=== PATIENT | male | born 1945 | race Caucasian/White ===

== ENCOUNTER 2018-11-11 00:46 | Inpatient (IN) | payer MEDICARE ==
[~2018-11-11] VITALS: Ht 172.7 cm; Wt 81.2 kg
[2018-11-11] VITALS (7 sets, daily range): BP systolic 117–203; BP diastolic 43–168
[~2018-11-11 00:46] MED LIST: CARDURA4 MG PO; COREG25 MG PO; ENOXAPARIN30 MG/0.1 SUBQ; LIPITOR 20 MG T20 M1 PO; LIPITOR40 MG PO; PRINIVIL10 MG PO; PRINIVIL20 MG PO
[2018-11-11 00:59] LABS: ABSOLUTE BASOPHILS 0.1 thou/uL (0.0-0.2); ABSOLUTE EOSINOPHILS 0.3 thou/uL (0.0-0.7); ABSOLUTE LYMPHOCYTES 3.6 thou/uL (0.8-5.3); ABSOLUTE MONOCYTES 0.9 thou/uL (0.0-1.2); BASOPHILS 0.7 %; EOSINOPHILS 3.2 %; HEMATOCRIT 50.1 % (42.0-52.0); HEMOGLOBIN 16.8 gm/dL (14.0-18.0); LYMPHOCYTES 40.6 %; MCH 30.5 pg (26.0-34.0); MCHC 33.5 g/dL (28.0-37.0); MCV 91.1 fL (80.0-100.0); MONOCYTES 10.4 %; MPV 7.5 fl. (7.2-11.1); NUCLEATED RBCS 0 /100WBC; PLATELET COUNT* 276 thou/uL (150-400); POLYS 45.1 %; RBC 5.49 mil/uL (4.50-6.00); WBC 8.9 thou/uL (4.0-11.0)
[2018-11-11 01:06] LABS: BUN 21 mg/dL (7-18); CALCIUM 9.1 mg/dL (8.5-10.1); CHLORIDE 102 mmol/L (98-107); CO2 28 mmol/L (21-32); CREATININE 1.1 mg/dL (0.6-1.3); GLUCOSE 134 mg/dL (70-99); POTASSIUM 4.1 mmol/L (3.5-5.1)
[2018-11-11 01:10] LABS: PROTIME 10.3 Seconds (9.20-11.50)
[2018-11-11 01:17] LABS: ALBUMIN 3.8 g/dL (3.4-5.0); ALKALINE PHOSPHATASE 80 U/L (46-116); NT-PRO BRAIN NAT PEPTIDE 779 pg/mL (<300); SGOT 29 U/L (15-37); SGPT 38 U/L (30-65); TOTAL BILIRUBIN 0.3 mg/dL (<0.1-1.0); TOTAL PROTEIN 8.3 g/dL (6.4-8.2); TROPONIN-I LEVEL <0.06 ng/mL (<0.06)
[2018-11-11 01:31] LABS: ANION GAP 9 mmol/L (7-16); SODIUM 139 mmol/L (136-145)
[2018-11-11 02:58] LABS: BE 1.6 mmol/L (-2 to +3); PCO2 40.9 mmHg (35.0-45.0); pH 7.424 (7.340-7.450)
[2018-11-11 02:59] LABS: PO2 144.8 mmHg (75.0-100.0)
--- NOTE | 2018-11-11 06:15 | NUR ---
PT ARRIVED TO THE UNIT AROUND 0445 FROM ER AND WALKED TO HIS BED WITH NO ISSUES. ABLE TO MAKE NEEDS KNOWN. ASSESSMENT COMPLETED CHARTED. PAPERWORK SIGNED AND EXPLAINED. BIPAP ON, RESTING IN BED WATCHING TV. NO C/O PAIN OR DISCOMFORT. IV FLUIDS RUNNING PER P.O. MEDS RECONCILED. WILL CONTINUE TO MONITOR.
[2018-11-11 07:56] LABS: CHOLESTEROL 181 mg/dL (<200); HDL CHOLESTEROL 45 mg/dL (>40); LDL CHOLESTEROL 125 mg/dL (<100); SERUM ASSESSMENT Clear; TRIGLYCERIDE 59 mg/dL (<150); VLDL 12 mg/dL (<40)
--- NOTE | 2018-11-11 10:00 | NUR ---
VSS, ASSUMED CARE IN THE AM, ASSESSMENT PERFORMED AND CHARTED, FALL PRECAUTIONS IN PLACE AND CALL LIGHT IN REACH, PT IS A&O4 AND WAS ON BIPAP BUT WAS D/C TO NC WITH 3L NC, PT O2 SAT IS 94%, PT IS UP AD GINNY, PT IS TRACING SR ON THE MONITOR, PT GOAL IS TO IMPROVE BREATHING, WALK THE UNIT AND SIT UP IN CHAIR, WILL FOLLOW WITH PLAN OF CARE.
--- NOTE | 2018-11-11 10:33 | EKG ---
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 : 1945 Requested By: Cindi Rich Order Number: [id number] MD: Cristian Carmona Measurements Intervals [place] Rate: 73 P: 70 MN: 167 QRS: 49 QRSD: 127 T: 98 QT: 409 QTc: 451 Interpretive Statements Sinus rhythm Probable left atrial enlargement Nonspecific intraventricular conduction delay Anterior infarct, old Borderline repolarization abnormality Baseline wander in lead(s) V3 Compared to ECG 12/27/2015 18:45:44 no change Electronically Signed On 11-11-2018 10:32:57 CDT by Cristian Carmona [email or web address] <ELECTRONICALLY SIGNED> By: Cristian Carmona MD, [facility] 11/11/18 1032 1 1 Cristian Carmona MD, [facility] /EPI
--- NOTE | 2018-11-11 14:25 | NUR ---
MET WITH PT AND FRIEND YE BREEZY TO DISCUSS HOME SITUATION/DC PLANNING. PT LIVES A ROOMMATE. HE IS NORMALLY ACTIVE AND INDEPENDENT. USES NO EQUIPMENT AT HOME AND HASN'T HH. FOLLOWS WITH DR SHIN. PT DOESN'T HAVE A DPOA BUT TOOK INFO AND IS CONSIDERING HAVING YE BE HIS DPOA. PT DENIES DC NEEDS AT THIS TIME. WILL FOLLOW
[2018-11-11 23:06] LABS: GLYCOHEMOGLOBIN (HGB A1C) 5.7 % (4.8-5.6)
[2018-11-12] VITALS: BP 137/51
[2018-11-12 04:00] VITALS: BP 140/59
[2018-11-12 05:28] LABS: HEMATOCRIT 41.3 % (42.0-52.0); MCH 30.4 pg (26.0-34.0); MCHC 33.3 g/dL (28.0-37.0); MCV 91.3 fL (80.0-100.0); MPV 8.1 fl. (7.2-11.1); RBC 4.53 mil/uL (4.50-6.00); RDW-CV 13.7 % (10.5-14.5); WBC 9.8 thou/uL (4.0-11.0)
--- NOTE | 2018-11-12 05:41 | NUR ---
ASSUMED PT CARE AT 1930. ASSESSMENT COMPLETED CHARTED. ABLE TO MAKE NEEDS KNOWN. UP AD GINNY. O2 ON 3L, NO C/O PAIN OR SOA. STATES HE FEELS MUCH BETTER THAN HE DID YESTERDAY. VSS. CALL LIGHT WITHIN REACH. WILL CONTINUE TO MONITOR.
[2018-11-12 05:43] LABS: HEMOGLOBIN 13.8 gm/dL (14.0-18.0)
[2018-11-12 06:29] LABS: CREATININE 1.1 mg/dL (0.6-1.3); MAGNESIUM 2.1 mg/dL (1.8-2.4); POTASSIUM 4.8 mmol/L (3.5-5.1); TROPONIN-I LEVEL 0.21 ng/mL (<0.06)
--- NOTE | 2018-11-12 07:58 | CON ---
[facility] [address] [place] [address] CONSULTATION Name: STEPHENIE MENDOZA Room: [address] IN M.R.#: [id number] Admission: 11/11/18 Attend Phys: Lindsey Encinas Discharge: Date of : 49 Report #: [id number] THIS REPORT FOR: //name// CC: Anand Lomeli DATE OF SERVICE: 11/11/2018 REQUESTING PHYSICIAN: Dr. Venecia Polanco. REASON FOR CONSULTATION: Shortness of breath, respiratory failure. DISCUSSION: The patient is a 73-year-old man who is a former smoker, quitting about 7-8 years ago. Denies ever being told that he had any underlying emphysema, asthma and COPD. He is not on any O2 or inhaled bronchodilator therapy at home. He has noted over the last month or so, has had episodes of getting short of breath. They tend to wax and wane. Not associated with any chest pain, palpitations or syncopal episode. He has had some upper airway congestion, which is relatively new for him. He notes in the past, he has not had any issues with allergies, but he has had some eye irritation, nasal congestion this spring. He has had the shortness of breath as noted. He has occasional cough, but he notes it is more from a "tickle" in his throat. Yesterday morning, he had gotten up and gone fishing with a friend. When they got back home, he was feeling very short of breath and asked to be brought to the Emergency Department. He was seen in the ED last night, which actually very early this morning. He was in fairly marked distress. He was placed on BiPAP. Blood gases were done. They were obtained while he was on the BiPAP. He did not have any hypercapnia. He was oxygenating well at that time. He was kept on the BiPAP overnight. He did come off it late this morning or early afternoon. He is feeling generally quite good at this time. He has already been able to get up and take a walk. He is now requesting to take a shower. He has no documented history of lung disease as noted; however, x-rays done here 3 years ago did reveal the pleural plaques. He does have exposure to asbestos in the past, this was quite a few years ago. 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 He notes his father did as a result of asbestosis. He also has a history of coronary artery disease. He had 4 stents placed quite a few years ago at [facility], really cannot be more specific in those details. He now sees Dr. Cristian Carmona. He has not had any chest pain with this as noted. No history of thromboembolic disease. PAST MEDICAL HISTORY: Besides the coronary arteries[place] [address] CONSULTATION Name: STEPHENIE MENDOZA Room: [address] IN M.R.#: [id number] Admission: 11/11/18 Attend Phys: Lindsey Encinas Discharge: Date of : 49 Report #: [id number] stroke, which he had about 3 years ago, also known carotid artery disease, had carotid endarterectomy done 5 or 6 years ago. He has also been evaluated and hospitalized briefly because of concern for heat exhaustion. Has a history of chronic kidney disease and dyslipidemia. 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 Former smoker as noted. He does live with a roommate. No smokers in the house. He quit smoking himself some years ago. He has no pets. Had 4 years in the [employer]. Asbestos exposure years ago when he was younger. FAMILY HISTORY: Positive for asbestosis in his father as noted. Denies any other lung problems in his family that he is aware of. REVIEW OF SYSTEMS: ROS was done. Note positives above. He notes his weight has been stable. Denies any difficulty swallowing. No nausea or vomiting. No diarrhea. He has not noted any blood in his stools. He has not had any hemoptysis. No fevers, chills or sweats. No skin rashes. He has not noted any fluid retention anywhere. Again, no chest pain, no abdominal pain. PHYSICAL EXAMINATION: GENERAL APPEARANCE: A male who looks stated age. He is alert, cooperative, able to speak in full sentences. HEENT: Head is normocephalic and atraumatic. Sclerae nonicteric. Mucous membranes a little dry. Dentition is fair. NECK: Negative for adenopathy. No JVD is noted. HEART: Regular, occasional extrasystole. Grade 1/6 systolic murmur. No S3 is heard. LUNGS: Reveal breath sounds to be only minimally decreased. He does have just a few faint crackles heard in the bases. No wheezing or rhonchi are heard. Excursion is equal. No pleural rubs are noted. EXTREMITIES: He has no clubbing. Radial pulses are present. ABDOMEN: Soft, without appreciable hepatosplenomegaly. No guarding or rebound tenderness. EXTREMITIES: Lower extremities are negative for edema. No calf tenderness. SKIN: Warm and dry. NEUROLOGIC: He is alert and oriented x 3. LABORATORY AND X-RAY FINDINGS: Chest x-ray reveals pleural plaques. They have been seen previously (2016). No CT chest at this facility. Unknown if he has had one elsewhere, he cannot recall. Arterial blood gases done this morning on the BiPAP, he had a pH of 7.42, pCO2 of 41, pO2 of 145, bicarbonate is 26, that was on 40% oxygen on the BiPAP. White blood cell count 8900, hemoglobin 16.8, hematocrit of 50.1, platelets are normal. D-dimer was normal. On his chemistry, BUN is 21, creatinine of 1.1. Transaminases normal. Total protein 8.3, albumin 3.8. Lactic acid was 1.1. Troponins initially normal, did bump up to 0.21. ProBNP 779. Last echocardiogram done here at [place] [place], [place] [address] CONSULTATION Name: STEPHENIE MENDOZA CHARMAINE Room: [address] IN [facility].#: [id number] Admission: 11/11/18 Attend Phys: Lindsey Encinas Discharge: Date of : 49 Report #: [id number] 2015, systolic function was normal with an EF of 50-55%. RV was normal. Left atrium was moderately dilated. Estimated pulmonary artery systolic pressure was 29 mmHg. IMPRESSION: 1. Complaints of marked shortness of breath. He had a fairly sudden onset. This was in the backdrop of having some intermittent episodes of mild shortness of breath and upper airway congestion over the last month, exact etiology not clear. Clinically, is better today. He has been treated with steroids, inhaled bronchodilators and empirically with antibiotics. He certainly could have some underlying chronic obstructive pulmonary disease related to his prior smoking. May have had an exacerbation, possibly allergic component; however, it is not clear what may have triggered the really severe onset. Does have mild elevation in his troponins. There is a possibility this could be related to cardiac ischemia. Thromboembolic disease should be kept in the differential, but I do note his D-dimer was normal, which makes that less likely. 2. Calcified pleural plaques, noted on prior imaging here in 2016, most likely has some pleural plaques related to prior asbestos exposure. 3. History of coronary artery disease, status post stent placement "years ago" reportedly done at [facility]. Did have a normal left ventricular function on his last echocardiogram. 4. History of stroke. 5. History of hypertension. RECOMMENDATIONS: 1. Can leave off BiPAP. Wean O2 as able. 2. We will check CTA of his chest. We cannot only evaluate for thromboembolic disease, can also assess the presence of pleural plaques. 3. May need full PFTs once over this acute event. 4. Follow up the cardiac enzymes. May need repeat echocardiogram. May need stress testing. <ELECTRONICALLY SIGNED> By: Maria Esther Kurtz MD 11/12/18 0758 1422 [id number] Esther Kurtz MD /nt
[2018-11-12 08:41] VITALS: BP 154/58
[2018-11-12 14:05] VITALS: BP 134/47
--- NOTE | 2018-11-12 14:09 | NUR ---
VSS, ASSUMED CARE IN THE AM, ASSESSMENT PERFORMED AND CHARTED, FALL PRECAUTIONS IN PLACE AND CALL LIGHT IN REACH, PT IS A&O4 AND UP AD GINNY, PT IS DENIES ANY PAIN, PT WAS ON 3L NC AND HAS BEEN MOVED TO RA AND IS 95% ON RA NOW, HE HAS MET HIS GOAL AT THIS TIME, PT WANTS TO D/C CESAR, WILL FOLLOW WITH PLAN OF CARE.
--- NOTE | 2018-11-12 15:43 | CON ---
[facility] [address] [place] [address] CONSULTATION Name: KELLYKRAIG DICKINSONE CHARMAINE Room: [address] IN M.R.#: [id number] Admission: 11/11/18 Attend Phys: Lindsey Encinas Discharge: Date of : 49 Report #: [id number] THIS REPORT FOR: //name// CC: Anand Ramirez DATE OF SERVICE: 11/11/2018 HISTORY OF PRESENT ILLNESS: The patient is a 73-year-old single white male who I was asked to see in the hospital today after he complained of being short of breath. The patient has an extensive past medical history. Unfortunately, not all of his old records are available. The patient apparently presented almost 10 years ago with chest pain. He worked in [place], [place] at that time. He was taken to [facility]. Apparently, he had 4 coronary artery stents placed. I have actually followed him in the Cardiology Clinic here in [place] since that time. The patient states his last stress test was a couple of years ago. He has had no further chest pain. He does have a heavy smoking history. He previously smoked a pack of cigarettes a day, quit about a year ago. He has a chronic cough. Recently, he has been more short of breath and coughing. He finally was brought to the Emergency Room yesterday and admitted. I was asked to see him for further evaluation and treatment. He stays fairly active, mowing his yard. Denies any recent chest pain. He has had no edema. He notes occasional episodes where his heart rate will increase, but he has had no syncope. PAST MEDICAL HISTORY: Significant for previous right carotid endarterectomy. The patient unfortunately had a stroke after his carotid endarterectomy. However, he has done well since that time. The patient has a history of hypertension, hyperlipidemia. No history of diabetes. MEDICATIONS: Consist of aspirin, Coreg, lisinopril, Lipitor. ALLERGIES: HE HAS AN ALLERGY TO PENICILLIN AND SULFA. FAMILY HISTORY: Negative for heart disease. SOCIAL HISTORY: He is single, lives here in [place]. 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 Quit smoking a year ago, no alcohol abuse. REVIEW OF SYSTEMS: He has had no previous history of asthma. No history of peptic ulcer disease, liver disease, kidney disease, cancer, psychiatric illness, chronic skin condition. PHYSICAL EXAMINATION: GENERAL: Revealed an elderly male, lying in bed. [place] [address] CONSULTATION Name: STEPHENIE MENDOZA Room: [address]#: [id number] Admission: 11/11/18 Attend Phys: Lindsey Encinas Discharge: Date of : 49 Report #: [id number] VITAL SIGNS: He had a blood pressure of 150/70, pulse was 60. He was afebrile. HEENT: He was anicteric. Conjunctivae pink. Mucous membranes moist. NECK: Veins do not appear distended. No carotid bruits heard. NECK: Supple. CHEST: Revealed distant breath sounds. CARDIOVASCULAR: Regular rate and rhythm. ABDOMEN: Soft. EXTREMITIES: Had no edema. Dorsalis pedis pulse 1+ bilaterally. SKIN: Cool and dry. NEUROLOGIC: Nonfocal. LYMPH: No adenopathy. MUSCULOSKELETAL: No joint effusion. DIAGNOSTIC DATA: His ECG showed a sinus rhythm, nonspecific ST-segment changes, possible previous anterior infarction. He actually had an echocardiogram done in 12/2015, showed an ejection fraction of 55% with left atrial enlargement. There was no evidence of a shunt by bubble study. His chest x-ray last night showed normal heart size and hyperinflated lung croft. Carotid Doppler study in 2016 showed occlusion of the left common carotid artery. The right internal carotid artery showed a 60-70% stenosis. Right subclavian artery stenosis. This was prior to his carotid surgery. LABORATORY DATA: Sodium 139, creatinine 1.1. His troponin was 0.18. BNP 779. Previous cholesterol 184, triglycerides 59, HDL 45, LDL 125. This is in 2005. In 2016, TSH was 2.0. His white blood cell count 8.9, hemoglobin 16.8. IMPRESSION AND RECOMMENDATION: 1. Acute exacerbation of chronic obstructive pulmonary disease. Recommend bronchodilators, pulse of steroids. 2. Coronary artery disease. Previous stent. No recent angina. 3. Previous stroke followed by carotid endarterectomy, asymptomatic. 4. Hypertension. The patient on a beta catracho and OZIEL inhibitor. 5. Hyperlipidemia. The patient is on a statin drug. 6. Previous tobacco abuse. <ELECTRONICALLY SIGNED> By: Cristian Carmona MD, [facility] 11/12/18 1543 0903 [id number] Carmona MD, FAC /nt
--- NOTE | 2018-11-12 16:39 | 2DMMODE ---
[place] [address] 2 D/M-MODE ECHOCARDIOGRAM Name: KELLYSTEPHENIE MONTANO Room: [address] IN [facility]#: [id number] Admission: 11/11/18 Attend Phys: Foreign Lomeli Discharge: Date of : 49 Date of Service: 11/12/18 1639 Report #: [id number] THIS REPORT FOR: //name// APPROVED REPORT Study performed: 11/12/2018 11:21:08 EXAM: Comprehensive 2D, Doppler, and color-flow Echocardiogram Patient Location: In-Patient Room #: [facility] Status: routine BSA: 1.95 HR: 67 bpm BP: 154/58 mmHg Rhythm: NSR Other Information Study Quality: Good Indications COPD Elevated Troponin 2D Dimensions IVSd: 14.36 (7-11mm) LVOT Diam: 21.05 (18-24mm) LVDd: 59.46 mm PWd: 11.35 (7-11mm) Ascending Ao: 31.47 (22-36mm) LVDs: 41.95 (25-40mm) Aortic Root: 33.06 mm Volumes Left Atrial Volume (Systole) LA ESV Index: 46.20 mL/m2 Aortic Valve AoV Peak Jay.: 1.03 m/s AO Peak Gr.: 4.25 mmHg LVOT Max P.94 mmHg AO Mean Gr.: 2.40 mmHg LVOT Mean P.85 mmHg LVOT Max V: 0.99 m/s AO V2 VTI: 21.28 cm LVOT Mean V: 0.62 m/s ANTONINO (VTI): 3.63 cm2 LVOT V1 VTI: 22.20 cm Mitral Valve E/A Ratio: 2.41 MV Decel. Time: 171.97 [place] [address] 2 D/M-MODE ECHOCARDIOGRAM Name: STEPHENIE MENDOZA Room: [address] IN .R.#: [id number] Admission: 11/11/18 Attend Phys: Foreign Lomeli Discharge: Date of : 49 Date of Service: 11/12/18 1639 Report #: [id number] MV E Max Jay.: 0.85 m/s MV PHT: 49.87 ms MVA (PHT): 4.41 cm2 TDI E/Lateral E': 7.73 E/Medial E': 7.73 Medial E' Jay.: 0.11 m/s Lateral E' Jay.: 0.11 m/s Pulmonary Valve PV Peak Jay.: 1.01 m/s PV Peak Gr.: 4.12 mmHg Tricuspid Valve RAP Estimate: 5.00 mmHg TR Peak Gr.: 32.12 mmHg RVSP: 37.00 mmHg PA Pressure: 37.00 mmHg Left Ventricle The left ventricle is normal size. There is basal inferior wall hypokinesis. There is normal left ventricular wall thickness. Left ventricular systolic function is mildly decreased. LVEF is 50-55%. Transmitral Doppler flow pattern suggests pseudonormalization. Right Ventricle The right ventricle is normal size. The right ventricular systolic function is normal. Atria Left atrium is moderately dilated. The right atrium size is normal. Aortic Valve Mild aortic valve sclerosis. No aortic regurgitation is present. There is no aortic valvular stenosis. Mitral Valve The mitral valve is normal in structure. Mild mitral regurgitation. No evidence of mitral valve stenosis. Tricuspid Valve The tricuspid valve is normal in structure. Mild tricuspid regurgitation. Mild pulmonary hypertension. Pulmonic Valve The pulmonary valve is normal in structure. There is no pulmonic [place] [address] 2 D/M-MODE ECHOCARDIOGRAM Name: STEPHENIE MENDOZA Room: [address] IN [facility]#: [id number] Admission: 11/11/18 Attend Phys: Foreign Lomeli Discharge: Date of : 49 Date of Service: 11/12/18 1639 Report #: [id number] Great Vessels The aortic root is normal in size. IVC is normal in size and collapses >50% with inspiration. Pericardium There is no pericardial effusion. <Conclusion> The left ventricle is normal size. There is normal left ventricular wall thickness. Left ventricular systolic function is mildly decreased. LVEF is 50-55%. Transmitral Doppler flow pattern suggests pseudonormalization. Left atrium is moderately dilated. Mild aortic valve sclerosis. Mild mitral regurgitation. Mild tricuspid regurgitation. Mild pulmonary hypertension. IVC is normal in size and collapses >50% with inspiration. <ELECTRONICALLY SIGNED> By: Drake Parks MD, FACC 11/12/18 1639 1639 1639 Drake Parks MD, FACC /INF
[2018-11-12 20:00] VITALS: BP 137/64
[2018-11-13 04:00] VITALS: BP 162/78
--- NOTE | 2018-11-13 05:36 | NUR ---
ASSUMED PT CARE AT 1930. ASSESSMENT COMPLETED CHARTED. ABLE TO MAKE NEEDS KNOWN. UP AD GINNY. NO C/O PAIN OR DISCOMFORT. PT IN ROOM MOST OF THE NIGHT EXCEPT TO GET COFFEE. VSS. POSSIBLE D/C TO HOME TODAY. WILL CONTINUE TO MONITOR.
[2018-11-13 05:46] LABS: HEMATOCRIT 41.5 % (42.0-52.0); HEMOGLOBIN 13.8 gm/dL (14.0-18.0); MCH 30.4 pg (26.0-34.0); MCHC 33.2 g/dL (28.0-37.0); MCV 91.5 fL (80.0-100.0); MPV 8.3 fl. (7.2-11.1); RBC 4.54 mil/uL (4.50-6.00); RDW-CV 13.9 % (10.5-14.5); WBC 10.3 thou/uL (4.0-11.0)
[2018-11-13 05:54] LABS: CALCIUM 8.9 mg/dL (8.5-10.1); MAGNESIUM 2.1 mg/dL (1.8-2.4); TROPONIN-I LEVEL 0.27 ng/mL (<0.06)
[2018-11-13 08:11] VITALS: BP 144/69
--- NOTE | 2018-11-13 10:49 | NUR ---
VSS, ASSUMED CARE IN THE AM, ASSESSMENT PERFORMED AND CHARTED, FALL PRECAUTIONS IN PLACE AND CALL LIGHT IN REACH, PT IS A&O4 AND UP AD GINNY, ON RA AND HIS GOAL IS TO DISCHARGE TO HOME, PT DENIES ANY PAIN, WILL FOLLOW WITH PLAN OF CARE,
--- NOTE | 2018-11-13 11:56 | NUR ---
ORDER RECEIVED TO [facility]. CALLED AND FAXED TO [facility]. THEY WILL DELIVER TO PT. NO DC TODAY. DO NOT ANTICIPATE ANY FURTHER NEEDS.
[2018-11-13 12:17] VITALS: BP 144/69
[2018-11-13 16:40] VITALS: BP 133/58
[2018-11-13 20:10] VITALS: BP 157/65
[2018-11-14 04:00] VITALS: BP 158/81
--- NOTE | 2018-11-14 05:02 | NUR ---
PT CARE ASSUMED AT 1930. SAT MAINTAINED AT RA. ALERT AND ORIENTED X4. CALL LIGHT WITHIN REACH AND BED IN LOW POSITION. DENIES PAIN AND SOB. HOURLY ROUNDING DONE FOR PT SAFETY.
--- NOTE | 2018-11-14 07:20 | NUR ---
CHANGE OF SHIFT BEDSIDE REPORT GIVEN PATIENT SEEN AT BEDSIDE, IN BED RESTING ASSUMED PATIENT CARE ASSUMED PATIENT CARE
[2018-11-14 08:00] VITALS: BP 170/73
[2018-11-14 11:27] LABS: BE 2.2 mmol/L (-2 to +3); PCO2 48.6 mmHg (35.0-45.0); PO2 105.3 mmHg (75.0-100.0)
[2018-11-14 11:54] LABS: TROPONIN-I LEVEL 0.18 ng/mL (<0.06)
[2018-11-14 16:00] VITALS: BP 165/60
--- NOTE | 2018-11-14 16:15 | NUR ---
PATIENT TRANSFERRED TO 113 TRANSFERRED VIA [employer]ONGINGS SENT TELEPHONE REPORT GIVEN
--- NOTE | 2018-11-14 16:57 | NUR ---
ASSUMED CARE OF PT. PT ORIENTED TO ROOM. REPORT RECEIVED FROM PREVIOUS RN. NO OTHER CONCERNS AT THIS TIME. CLWR. WCTM.
[2018-11-14 20:30] VITALS: BP 162/64
[2018-11-15 05:30] VITALS: BP 190/85
--- NOTE | 2018-11-15 07:40 | NUR ---
Alert and oriented x 4. Up in room independently. He is on roomair and sat was 93-95%. Vitals are stable. This am he was short of air , BP was elevated and BP meds were given early. Breathing treatment was done and he felt better. He did sleep well.
--- NOTE | 2018-11-15 10:34 | NUR ---
PT OFF UNIT FOR STRESS TEST
--- NOTE | 2018-11-15 11:59 | NUR ---
PT RETURN FROM [facility]. ORIENTED TO ROOM AND UNIT. TELE APPLIED, BED LOW AND LOCKED, SIDE RAILS UP X3, CALL LIGHT IN REACH.
[2018-11-15 12:40] VITALS: BP 165/86
[2018-11-15 16:11] VITALS: BP 151/62
--- NOTE | 2018-11-15 16:34 | EKG ---
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: : 1945 Requested By: Maria Esther Kurtz Order Number: [id number] Reading MD: Laci Craven Measurements Intervals [place] Rate: 61 P: 52 VA: 161 QRS: 34 QRSD: 112 T: 180 QT: 388 QTc: 391 Interpretive Statements Sinus rhythm Probable anteroseptal infarct, recent Compared to ECG 11/11/2018 01:02:26 Intraventricular conduction delay no longer present Myocardial infarct finding still present Electronically Signed On 11-15-2018 16:34:05 CDT by Laci Craven [email or web address] <ELECTRONICALLY SIGNED> By: Laci Craven MD, FACC 11/15/18 1634 1308 1308 Laci Craven MD, [facility] /EPI
--- NOTE | 2018-11-15 16:37 | EKG ---
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 : 1945 Requested By: Foreign Lomeli Order Number: [id number] Reading MD: Laci Craven Measurements Intervals [place] Rate: 72 P: 63 NE: 145 QRS: 52 QRSD: 113 T: 171 QT: 377 QTc: 413 Interpretive Statements Sinus rhythm Probable anterior infarct, old Borderline repolarization abnormality Compared to ECG 11/11/2018 01:02:26 Intraventricular conduction delay no longer present Myocardial infarct finding still present Electronically Signed On 11-15-2018 16:37:09 CDT by Laci Craven [email or web address] <ELECTRONICALLY SIGNED> By: Laci Craven MD, [facility] 11/15/18 1637 5 5 Laci Craven MD, [facility] /EPI
[2018-11-15 20:00] VITALS: BP 146/54
[2018-11-16] VITALS: BP 145/64
[2018-11-16 04:00] VITALS: BP 165/69
[2018-11-16 05:10] LABS: CALCIUM 8.4 mg/dL (8.5-10.1); POTASSIUM 4.1 mmol/L (3.5-5.1); TROPONIN-I LEVEL 0.19 ng/mL (<0.06)
--- NOTE | 2018-11-16 05:20 | NUR ---
PT ALERT ORIENTED. UP AD GINNY IN ROOM. DENIES PAIN. TELEMETRY SHOWS SB 50S.
[2018-11-16 08:14] VITALS: BP 177/78
[2018-11-16 12:00] VITALS: BP 139/59
--- NOTE | 2018-11-16 15:40 | NUR ---
WILL HOLD A.M. COREG, PT SLIGHTLY BRADYCARDIC MOST OF THE DAY.
[2018-11-16 16:07] VITALS: BP 142/62
--- NOTE | 2018-11-16 17:32 | NUR ---
PT AMBULATED [place]FORD AND UP TO CHAIR FOR ALL MEALS. PT TOLEARATING CURRENT COURSE OF CARE.
[2018-11-16 20:10] VITALS: BP 116/51
[2018-11-17 00:06] VITALS: BP 116/51
[2018-11-17 04:05] VITALS: BP 133/55
--- NOTE | 2018-11-17 04:48 | NUR ---
PT CARE ASSUMED AT 1930. SAT MAINTAINED IN RA. ALERT AND ORIENTED X4. CALL LIGHT WITHIN REACH AND BED IN LOW POSITION. DENIES PAIN AND SOB. HOURLY ROUNDING DONE FOR PT SAFETY.
[2018-11-17 04:53] LABS: HEMATOCRIT 46.7 % (42.0-52.0); HEMOGLOBIN 15.6 gm/dL (14.0-18.0); MCHC 33.3 g/dL (28.0-37.0); MPV 7.8 fl. (7.2-11.1); NUCLEATED RBCS 0 /100WBC; PLATELET COUNT* 220 thou/uL (150-400); RBC 5.18 mil/uL (4.50-6.00); WBC 9.9 thou/uL (4.0-11.0)
[2018-11-17 05:30] LABS: ALBUMIN 2.7 g/dL (3.4-5.0); CALCIUM 8.6 mg/dL (8.5-10.1); CREATININE 1.1 mg/dL (0.6-1.3); MAGNESIUM 2.1 mg/dL (1.8-2.4); POTASSIUM 3.8 mmol/L (3.5-5.1); TOTAL BILIRUBIN 0.4 mg/dL (<0.1-1.0); TOTAL PROTEIN 5.6 g/dL (6.4-8.2)
[2018-11-17 06:10] LABS: ABSOLUTE LYMPHOCYTES 3.5 thou/uL (0.8-5.3); ABSOLUTE MONOCYTES 0.3 thou/uL (0.0-1.2); ABSOLUTE NEUTROPHILS 6.1 thou/uL (1.6-8.1)
[2018-11-17 06:11] LABS: ATYPICAL LYMPHS 14 %; PLATELET ESTIMATE ADEQUATE
[2018-11-17 08:32] VITALS: BP 163/78
[2018-11-17 12:11] VITALS: BP 136/54
--- NOTE | 2018-11-17 16:10 | NUR ---
ASSUMED CARE OF PT AROUND 0730 THIS AM. REFER TO ASSESSMENT. PT PROGRESSING TOWARDS GOALS TODAY. TOLERATED RA THIS SHIFT. STEROID DOSE CHANGED TO PO. PT TO BE NPO AFTER MIDNIGHT FOR STRESS TEST TOMORROW. TELE SB-SR. NO OTHER CONCERNS AT THIS TIME. CLWR. WCTM.
[2018-11-17 16:23] VITALS: BP 120/52
[2018-11-17 20:10] VITALS: BP 160/54
[2018-11-18] VITALS (7 sets, daily range): BP systolic 110–189; BP diastolic 45–83
[2018-11-18 05:38] LABS: CALCIUM 8.7 mg/dL (8.5-10.1); MAGNESIUM 2.1 mg/dL (1.8-2.4); POTASSIUM 4.2 mmol/L (3.5-5.1)
[2018-11-18] MEDS ORDERED: PREDNISONE 10 M10 MG PO (11:32)
[2018-11-18] MEDS ORDERED: ASPIRIN325 PO (11:32)
[2018-11-18] MEDS ORDERED: LEVAQUIN 500 M500 M1 PO (11:32)
[2018-11-18] MEDS ORDERED: IPRAT-ALBUT 0.5-3 ML INH (11:32)
[2018-11-18] MEDS ORDERED: SINGULAIR 10 MG10 M1 PO (11:32)
[2018-11-18] MEDS ORDERED: CARVEDILOL3.125 MG PO (11:32)
[2018-11-18] MEDS ORDERED: LISINOPRIL40 MG PO (11:32)
--- NOTE | 2018-11-18 16:02 | NUR ---
ASSUMED PT CARE AT 0730. AOX4, UP AD LID. O2 SAT AT 90'S RA. PT NPO FOR STRESS TEST. PT DENIES ANY PAIN. PT FOR DISCHARGE. 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 WHEEZES/COARSE NOTED ON LUNG SOUND. LAST BM 11/17/18, ABDOMEN SOFT AND ROUND. VSS, AM ASSESSMENT CHARTED. MEDS GIVEN PER SEP. CALL LIGHT WITHIN REACH. WILL CONTINUE TO MONITOR.
--- NOTE | 2018-11-18 16:30 | CARDNUC ---
[place] [address] CARDIAC NUCLEAR IMAGING REPORT Name: STEPHENIE MENDOZA Room: [facility]- ADM IN [facility]#: [id number] Admission: 11/11/18 Attend Phys: Foreign Lomeli Discharge: Date of : 49 Date of Service: 11/18/18 1629 Report #: [id number] THIS REPORT FOR: //name// APPROVED REPORT Study performed: 11/15/2018 10:58:16 Exam: Nuclear Stress Test Indication: Elevated Troponins, CAD s/p PCI, CAD s/p HI Patient Location: In-Patient Room #: 215 Stress Tech: Eileen Ramey Stress Nurse: Kylie Hall RN Ht: 5 ft 8 in Wt: 181 lbs BSA: 1.96 m2 BMI: 27.51 Medical History Medical History: Angina, Arrhythmia, CAD s/p HI, CAD s/p stent, COPD, HTN, Hyperlipidemia, Smoking, Stroke/TIA, Weakness, Elevated Troponins, PVD. Medications: Lisinopril, Carvedilol, ASA 325 mg, Atorvastatin Allergies: Penicillin, Sulfa. Cardiac Risk Factors: Age, Past Smoker, HTN, Hyperlipidemia, PVD, COPD. Previous Cardiac Procedures: Myocardial infarction, PCI Pretest Chest Pain Characteristics: No chest pain Exercise History: Indeterminate Physical Disabilities: Generalized weakness, COPD. Meds Held (24 hrs): Carvedilol Stress Test Details Stress Test: Pharmacologic stress testing performed using 0.4 mg of regadenoson per 5 mL given IV over 10 seconds. Reason for pharmacologic stress test: COPD, Generalized weakness.. HR Resting HR: 69 bpm Max Heart Rate (APMHR): 149 bpm Max HR Achieved: 80 bpm Target HR (85% APMHR): 126 bpm % of APMHR: 53 Recovery HR: 75 bpm BP Resting BP: 194/95 [place] [address] CARDIAC NUCLEAR IMAGING REPORT Name: STEPHENIE MENDOZA Room: [address] IN [facility]#: [id number] Admission: 11/11/18 Attend Phys: Foreign Lomeli Discharge: Date of : 49 Date of Service: 11/18/18 1629 Report #: [id number] Max BP: 166/75 mmHg ECG Resting ECG: Sinus Rhythm, nonspecific ST-T abnormalities Stress ECG: Sinus Rhythm, nonspecific ST-T abnormalities ST Change: None Arrhythmia: None Recovery ECG: Sinus Rhythm, nonspecific ST-T abnormalities Recovery ST Change: None Recovery Arrhythmia: None Clinical Reason for Termination: Completed protocol Stress Symptoms: None reported Exercise duration: 0 min 0 sec Exercise capacity: 1.00 METs The patient tolerated Lexiscan infusion without significant symptoms. Nurse Comments 73 year old male inpatient presented with COPD and HX of HI, PCI and recent elevated troponins. Patient tolerated sitting Lexiscan well. Recovery unremarkable with PO caffeine. Patient escorted via wheelchair by staff to Nuclear Medicine for images. Patient stable with no complaints at this time. Stress ECG Conclusion The baseline 12-lead EKG shows sinus rhythm with subtle ST segment depression in the anterolateral leads. EKGs obtained during and post Lexiscan infusion showed sinus rhythm with no significant ST or T wave changes when compared to baseline. There were no stress-induced arrhythmias. NM EXAM: Myocardial Perfusion REST/STRESS Imaging Protocol: Rest Tc-99m/Stress Tc-99m 2 days Resting Data Rest SPECT myocardial perfusion imaging was performed in supine position 30 minutes following the intravenous injection of 11.9 mCi of Tc-99m Sestamibi. Time of rest injection: 09:50 The images were gated to evaluate regional wall motion and calculate left ventricular ejection fraction. Administration Route: [place] [address] CARDIAC NUCLEAR IMAGING REPORT Name: SETPHENIE MENDOZA Room: [address]#: [id number] Admission: 11/11/18 Attend Phys: Foreign Lomeli Discharge: Date of : 49 Date of Service: 11/18/18 1629 Report #: [id number] Pharmacologic Stress Pharmacologic stress test was performed by injecting Regadenoson 0.4 mg IV push followed by the intravenous injection of 29.7 mCi of Tc-99m Sestamibi. Time of stress injection: 10:35 Administration Route: IV Administration Site: Right Wrist Heart Rate at time of stress injection: 77 bpm. Gated Stress SPECT was performed 45 minutes after stress injection. The images were gated to evaluate regional wall motion and calculate left ventricular ejection fraction. Prone imaging was performed. Study Quality Study: Good Artifact: No artifact Study Data At rest, the left ventricular ejection fraction was 38%.. Post stress, the left ventricular ejection was 28%.. TID = 0.92. Perfusion Perfusion images show a focal fixed defect of mild intensity in the mid to distal anterior wall as well as a small size moderate intensity defect involving the distal to apical inferolateral wall. There is a large region of ischemia identified from the basal to the distal inferior and inferolateral wall. Wall Motion The basal to mid inferolateral wall appears akinetic. There is significant hypokinesis of the apex. Overall left ventricular systolic function is severely decreased. Nuclear Conclusion ECG Findings: non-diagnostic Clinical Findings: negative for ischemia Nuclear Findings: positive for ischemia Exercise Capacity: not assessed Left Ventricular Function: abnormal Risk Study: high Myocardial perfusion images suggest prior infarct involving the distal anterior lateral and distal apical inferolateral siddiqi with a large region of ischemia involving [place] [address] CARDIAC NUCLEAR IMAGING REPORT Name: STEPHENIE MENDOZA Room: [address] IN ..#: [id number] Admission: 11/11/18 Attend Phys: Foreign Lomeli Discharge: Date of : 49 Date of Service: 11/18/18 1629 Report #: [id number] inferolateral lateral wall. Left ventricular systolic function is severely decreased on gated images with wall motion abnormalities as outlined above. This is a high risk study. <Conclusion> The baseline 12-lead EKG shows sinus rhythm with subtle ST segment depression in the anterolateral leads. EKGs obtained during and post Lexiscan infusion showed sinus rhythm with no significant ST or T wave changes when compared to baseline. There were no stress-induced arrhythmias. <ELECTRONICALLY SIGNED> By: Drake Parks MD, FACC 11/18/18 1629 162 162 Drake Parks MD, FACC /INF
[2018-11-18 17:04] LABS: URINE BILIRUBIN NEGATIVE (Negative); URINE BLOOD NEGATIVE (Negative); URINE CLARITY CLEAR; URINE COLOR YELLOW; URINE GLUCOSE-RANDOM NEGATIVE (Negative); URINE KETONES NEGATIVE (Negative); URINE LEUKOCYTES-REFLEX NEGATIVE (Negative); URINE NITRITE-REFLEX NEGATIVE (Negative); URINE PROTEIN NEGATIVE (Negative); URINE UROBILINOGEN 0.2 E.U./dl (0.2-1.0)
--- NOTE | 2018-11-18 19:42 | NUR ---
PT HAD STRESS TEST CAME BACK POSITIVE. PT NPO MIDNIGHT FOR CHIEF TALENT OFFICER TOMORROW. PT HAD NS RUNNING 100, IV INTACT. GIVE REPORT TO NIGHT NURSE. HOURLY ROUNDING OBSERVED. CALL LIGHT WITHIN REACH. WILL CONTINUE TO MONITOR.
--- NOTE | 2018-11-18 19:48 | NUR ---
I HAVE REVIEWED AND AGREE WITH THE ASSESMENT AND NOTES OF JOHNNY Pelayo RN ON 11/18/18
[2018-11-19] VITALS (16 sets, daily range): BP systolic 96–169; BP diastolic 46–95
--- NOTE | 2018-11-19 05:27 | NUR ---
ASSUMED CARE OF PT AFTER REPORT AT 1930. PT A&OX4. VSS. PHYSICAL ASSESSMENT COMPLETED AND CHARTED. PT ON RA. PT TRACING SR/SB/PVC ON TELE. PT UPADLIB TO RESTROOM. PT DENIES ANY PAIN OR SOA. INSTRUCTED ON NPO POST MIDNIGHT FOR CARDIAC CATH. COMMUNICATES UNDERSTANDING. PT RESTED WELL ON BED. CALL LIGHT WITHIN REACH.
--- NOTE | 2018-11-19 13:51 | NUR ---
Nutrition: Pt assessed for LOS. Admitted with resp failure. H/o COPD, HTN. Heart Healthy diet ordered, good appetite. Wt stable, 170#. Alb 2.7, prealb 28. No nutrition concerns. Low risk.
--- NOTE | 2018-11-19 14:00 | NUR ---
ASSUMED PT CARE REPORT RECEIVED FROM NURSE PT IS AOX4 SR/ S SAE ON ETL MANAGER. ON RA. O2 SATURATION IS 99%. PT IS NPO FOR CARDIAC CATH TODAAY. CONSENT SIGNED, AM MEDICATIONS GIVEN. PT LEFT FLOOR FOR CARDIAC CATH AT 11:30 AM , CAME BACK AT 1315. ON RA O2 SATURATION IS 95%, VS TAKEN AND BEING MONITORED [id number]. TEMP 98.0. R GROIN IS INTACT. NO BLEEDING. HEART MONITOR TRACING SR POST CARDIAC CATH. LUNCH BOX OFFERED TO PT. URINAL PROVIDED. AND FRESH WATER GIVEN. NO COMPLAINT AT THIS TIME. WILL CONTINUE TO MONITOR PT
--- NOTE | 2018-11-19 15:40 | EKG ---
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
--- NOTE | 2018-11-19 18:30 | NUR ---
POST CARDIAC CATH, VS STABLE AND CHARTED. PT OFF BEDREST. IV FLUID BAG REPLACED INFUSING AT 150 PER HOUR. WILL CONTINUE TO MONITOR.
[2018-11-20 00:01] VITALS: BP 118/98
[2018-11-20 04:00] VITALS: BP 134/65
--- NOTE | 2018-11-20 05:02 | NUR ---
ASSUMED CARE OF PT AFTER REPORT AT 1930. PT A&OX4. VSS. PHYSICAL ASSESSMENT COMPLETED AND CHARTED. PT ON RA. PT TRACING SB ON TELE. PT UPADLIB TO RESTROOM. PT POST CATH SITE TO RIGHT GROIN C/D/I WITH MINIMAL AMOUNT OF BLOOD ON THE DRESSING. NO TENDERNESS OR HEMATOMA NOTED. PT DENIES ANY PAIN OR DISCOMFORT. CALL LIGHT WITHIN REACH.
[2018-11-20 05:18] LABS: CREATININE 1.1 mg/dL (0.6-1.3); POTASSIUM 4.6 mmol/L (3.5-5.1)
[2018-11-20 05:25] LABS: HEMATOCRIT 40.2 % (42.0-52.0); MCV 91.1 fL (80.0-100.0); RBC 4.41 mil/uL (4.50-6.00); RDW-CV 13.9 % (10.5-14.5); WBC 11.2 thou/uL (4.0-11.0)
[2018-11-20 05:34] LABS: HEMOGLOBIN 13.2 gm/dL (14.0-18.0)
[2018-11-20 08:00] VITALS: BP 147/77
--- NOTE | 2018-11-20 10:52 | EKG ---
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: : 1945 Requested By: Cristian Carmona Order Number: [id number] Jona MD: Cristian Carmona Measurements Intervals [place] Rate: 56 P: 47 [place]: 166 QRS: 26 QRSD: 119 T: 148 QT: 411 QTc: 397 Interpretive Statements Sinus rhythm Probable left atrial enlargement Nonspecific intraventricular conduction delay Probable anteroseptal infarct Compared to ECG 11/19/2018 14:01:32 Myocardial infarct finding still present Electronically Signed On 11-20-2018 10:52:04 CDT by Cristian Carmona [email or web address] <ELECTRONICALLY SIGNED> By: Cristian Carmona MD, [facility] 11/20/18 1052 0439 [id number] Cristian Carmona MD, [facility] /EPI
[2018-11-20 12:00] VITALS: BP 134/54
--- NOTE | 2018-11-20 13:07 | NUR ---
ASSUMED PT CARE AT 0800, AOX4, UP AD GINNY, O2 SAT 90'S RA. TRACING SR ON FLY TIER. PT FOR DISCHARGE. PT DENIES ANY PAIN PT LUNG SOUND CLEAR, LAST BM TODAY. ABDOMEN SOFT AND ROUND. PT CATH SITE R GROIN INTACT. VSS, AM ASSESSMENT CHARTED. MEDS GIVEN PER MAR. CALL LIGHT WITHIN REACH. WILL CONTINUE TO MONITOR.
[2018-11-20] MEDS ORDERED: IPRAT-ALBUT 0.5-3 ML INH (13:17)
[2018-11-20] MEDS ORDERED: PLAVIX 75 MG TA75 M1 PO (13:17)
[2018-11-20] MEDS ORDERED: ATORVASTATIN CA40 MG PO (13:17)
[2018-11-20] MEDS ORDERED: PROTONIX40 M1 PO (13:18)
[2018-11-20] MEDS ORDERED: PREDNISONE 20 M20 MG PO (13:18)
[2018-11-20] MEDS ORDERED: ASPIRIN325 PO (13:40)
[2018-11-20] MEDS ORDERED: CARVEDILOL3.125 MG PO (13:41)
--- NOTE | 2018-11-20 14:18 | NUR ---
DISCUSSED DISCHARGE PLAN WITH PT. MEDICATION PACKET/SCRIPT GIVEN. REMINDED TO FOLLOW UP WITH PCP, CARDIOLOGY. R GROIN INTACT. CATH SITE CARE DISCUSSED. TELE IV REMOVED ALL BELONGINGS PACKED AND CHECKED. PT LEFT THE UNIT AMBULATORY AT 1405.
--- NOTE | 2018-11-20 15:03 | NUR ---
I HAVE REVIEWED AND AGREE WITH THE ASSESMENT AND NOTES OF JOHNNY Mota RN ON 11/20/18
== END 2018-11-20 14:05 | disposition home or self-care (01) | DRG 246 ==
LOC: M.ERS 00:46 → M.TBA-ER 02:50 → M.2W 02:50 → M.ORTHSURG 11-14 16:39 → M.2W 11-15 09:05
PROVIDERS: Emergency Medicine; Internal Medicine; Internal Medicine Cardiovascular Disease; Internal Medicine Critical Care Medicine; Internal Medicine Pulmonary Disease; ADMIT Internal Medicine
PROC: B2151ZZ Fluoroscopy of Left Heart using Low Osmolar Contrast (ICD-10-PCS; principal; 2018-11-20)
PROC: 027034Z Dilation of Coronary Artery, One Artery with Drug-eluting Intraluminal Device, Percutaneous Approach (ICD-10-PCS; principal; 2018-11-20)
PROC: 4A023N7 Measurement of Cardiac Sampling and Pressure, Left Heart, Percutaneous Approach (ICD-10-PCS; principal; 2018-11-20)
PROC: B2111ZZ Fluoroscopy of Multiple Coronary Arteries using Low Osmolar Contrast (ICD-10-PCS; principal; 2018-11-20)
DX: I21.4 Non-ST elevation (NSTEMI) myocardial infarction (principal); J96.21 Acute and chronic respiratory failure with hypoxia; J44.1 Chronic obstructive pulmonary disease with (acute) exacerbation; E78.5 Hyperlipidemia, unspecified; I25.10 Atherosclerotic heart disease of native coronary artery without angina pectoris; I11.0 Hypertensive heart disease with heart failure; J40 Bronchitis, not specified as acute or chronic; I24.9 Acute ischemic heart disease, unspecified; I50.9 Heart failure, unspecified; I25.2 Old myocardial infarction; Z95.5 Presence of coronary angioplasty implant and graft; Z88.0 Allergy status to penicillin; Z87.891 Personal history of nicotine dependence; Z86.73 Personal history of transient ischemic attack (TIA), and cerebral infarction without residual deficits; Z79.82 Long term (current) use of aspirin; Z79.899 Other long term (current) drug therapy

== ENCOUNTER 2019-09-14 07:59 | Inpatient (IN) | payer MEDICARE ==
[~2019-09-14] VITALS: Ht 172.7 cm; Wt 85.7 kg
[2019-09-14] VITALS (14 sets, daily range): BP systolic 105–181; BP diastolic 44–83
[~2019-09-14 07:59] MED LIST changes: +ADVAIR HFA 230M12 GM INH; +ASPIR 8181 MG PO; +ASPIRIN325 PO; +ATORVASTATIN CA40 MG PO; +AZITHROMYCIN 2250 MG PO; +CARVEDILOL3.125 MG PO; +CEFDINIR300 MG PO; +COREG6.25 MG PO; +IPRAT-ALBUT 0.5-3 ML INH; +LEVAQUIN 500 M500 M1 PO; +LISINOPRIL40 MG PO; +MUCINEX600 MG PO; +PLAVIX 75 MG TA75 M1 PO; +PREDNISONE 10 M10 MG PO; +PREDNISONE 20 M20 MG PO; +PROTONIX40 M1 PO; +SINGULAIR 10 MG10 M1 PO
--- NOTE | 2019-09-14 08:34 | NUR ---
CATH TEAM ARRIVED, PT TAKEN TO APPLICATION SUPPORT LEAD AT THIS TIME. PRIMARY NURSE, AVERY GIRON WITH PT UPON DEPARTURE OF ED.
[2019-09-14 08:37] LABS: ABSOLUTE LYMPHOCYTES 0.6 thou/uL (0.8-5.3); ABSOLUTE MONOCYTES 0.3 thou/uL (0.0-1.2); ABSOLUTE NEUTROPHILS 2.8 thou/uL (1.6-8.1); BASOPHILS 0.2 %; EOSINOPHILS 0.8 %; HEMATOCRIT 22.7 % (42.0-52.0); HEMOGLOBIN 7.7 gm/dL (14.0-18.0); LYMPHOCYTES 16.2 %; MCH 31.1 pg (26.0-34.0); MCV 91.5 fL (80.0-100.0); MONOCYTES 7.9 %; NUCLEATED RBCS 0 /100WBC; PLATELET COUNT* 117 thou/uL (150-400); POLYS 74.9 %; RBC 2.48 mil/uL (4.50-6.00); RDW-CV 13.4 % (10.5-14.5); WBC 3.8 thou/uL (4.0-11.0)
[2019-09-14 08:48] LABS: INR 1.4
[2019-09-14 08:59] LABS: ALBUMIN 1.6 g/dL (3.4-5.0); ALKALINE PHOSPHATASE 33 U/L (46-116); ANION GAP 13 mmol/L (7-16); BUN 16 mg/dL (7-18); CHLORIDE 120 mmol/L (98-107); CO2 15 mmol/L (21-32); CREATININE 0.4 mg/dL (0.6-1.3); GLUCOSE 90 mg/dL (70-99); LIPASE 58 U/L (73-393); NT-PRO BRAIN NAT PEPTIDE 296 pg/mL (<300); SGOT 17 U/L (15-37); SGPT 16 U/L (30-65); SODIUM 148 mmol/L (136-145); TOTAL BILIRUBIN 0.1 mg/dL (<0.1-1.0); TOTAL PROTEIN 3.4 g/dL (6.4-8.2)
[2019-09-14 09:08] LABS: CALCIUM < 5.0 mg/dL (8.5-10.1); MAGNESIUM 0.9 mg/dL (1.8-2.4); POTASSIUM 2.2 mmol/L (3.5-5.1)
--- NOTE | 2019-09-14 13:15 | CON ---
[address] [address] CONSULTATION Name: STEPHENIE MENDOZA Room: [address] IN M.R.#: [id number] Admission: 09/14/19 Attend Phys: Cristian Carmona MD, F Discharge: Date of : 49 Report #: [id number] THIS REPORT FOR: //name// cc: Anand Quinn Russell J. DO ~ THIS REPORT FOR: //name// CC: Cristian Quinn DO DATE OF SERVICE: 09/14/2019 CARDIOLOGY CONSULTATION HISTORY OF PRESENT ILLNESS: The patient is a 74-year-old single white male, who came to the Emergency Room complaining of chest pain. The patient has an extensive past medical history. He has had multiple coronary stents placed both at [facility] and at [facility]. He has a history of COPD, but fortunately quit smoking in the past. Previous heart catheterization in 11/2018 showed a 90% in-stent restenosis of the stent in the circumflex artery and I placed a new stent; ejection fraction was only 45%; the right coronary artery was completely occluded, filled by collaterals; the diagonal artery also had a stent that was completely occluded and filled by collaterals; the stents in the LAD had no significant restenosis. He was discharged on aspirin and Plavix. He has done well since that time, although he does not exercise on a regular basis. He does note that he was taken off of blood pressure pills and statin drugs in the past. He is no longer taking Plavix. He currently only takes an aspirin a day and uses inhaler. He was doing well until he woke up this morning with a pressure in his chest and in his back, felt diaphoretic, nauseated and lightheaded. He called EMS and was brought here to [facility] Because of his abnormal ECG, Cardiology consultation requested. Because of prolonged chest pain, I recommended repeat cardiac catheterization. He does note exertional dyspnea and lightheadedness, but no syncope or palpitations. PAST MEDICAL HISTORY: He has had back surgery, knee surgery, carotid endarterectomy, hypertension and hyperlipidemia. MEDICATIONS: His current medications include only aspirin and inhaler. In the past, he had been on Plavix, carvedilol, Lipitor, Protonix and Zestril. ALLERGIES: HE HAS AN ALLERGY TO PENICILLIN. FAMILY HISTORY: [place] [address] CONSULTATION Name: STEPHENIE MENDOZA Room: [address] IN [facility]#: [id number] Admission: 09/14/19 Attend Phys: Cristian Carmona MD, F Discharge: Date of : 49 Report #: [id number] SOCIAL HISTORY: He is single, lives with a friend in [place]. 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 Smokes one-half pack of cigarettes a day, but quit last year. No alcohol abuse. REVIEW OF SYSTEMS: No history of stroke, peptic ulcer disease, liver disease, kidney disease, cancer, psychiatric illness or chronic skin condition. PHYSICAL EXAMINATION: GENERAL: Revealed an elderly male, lying in bed, appeared in no distress. VITAL SIGNS: Blood pressure 130/70, pulse is 50, he was afebrile. HEENT: He is anicteric. Conjunctivae are pink. Mucous membranes appear dry. NECK: Veins nondistended. No carotid bruits. CHEST: Clear to auscultation. CARDIOVASCULAR: Regular rate and rhythm. ABDOMEN: Soft. EXTREMITIES: Had no edema. Dorsalis pedis pulse cannot be palpated. SKIN: Cool and dry. NEUROLOGIC: Nonfocal. LABORATORY DATA: ECG performed by the paramedics showed a sinus bradycardia; there was a poor R-wave progression; no significant ST or T-wave change; there appeared to be early repolarization in V2 and V3. His workup so far: Lab work included sodium 148, potassium is only 2.2, his BUN is 16, creatinine 0.4 and glucose 90. Liver function studies were normal. His magnesium is 0.9. His albumin is only 1.6. Troponin 0.82. BNP 296. His white blood cell count 3.8, hemoglobin 7, hematocrit 22.7. IMPRESSION AND RECOMMENDATIONS: 1. Unstable angina. Multiple stents. Recommend repeat cardiac catheterization. 2. Cardiomyopathy. The patient recently was taken off his beta catracho and OZIEL inhibitor. 3. Previous tobacco abuse. 4. Chronic obstructive pulmonary artery disease. 5. Peripheral arterial disease. 6. Previous carotid endarterectomy. 7. Hypokalemia. Recommend replacing. 8. Protein malnutrition. 9. Anemia. No recent bleeding. <ELECTRONICALLY SIGNED> By: Cristian Carmona MD, FACC 09/14/19 1315 0938 1011Davirea Carmona MD, FACC /nt
[2019-09-14 15:16] LABS: AMP/METHAMP Negative (Negative); BARBITURATES Negative (Negative); BENZODIAZEPINES Negative (Negative); COCAINE Negative (Negative); METHADONE Negative (Negative); OPIATES POSITIVE (Negative); PCP Negative (Negative); THC Negative (Negative)
[2019-09-14 21:34] LABS: MAGNESIUM 2.5 mg/dL (1.8-2.4); POTASSIUM 4.8 mmol/L (3.5-5.1)
--- NOTE | 2019-09-14 22:08 | NUR ---
INITAL ASSESMENT COMPLETED AT 1910. PT POST CARDIAC CATHETERIZATION TODAY. RIGHT GROIN SITE SOFT, NO BLEEDING, BRUISING OR HEMATOMA. PT INSTRUCTED TO CALL NURSE IF SWELLING OR BLEEDING OCCUR. PT INSTRUCTED TO SPLINT GROIN SITE IF COUGHING OR BEARING DOWN.
[2019-09-15] VITALS (10 sets, daily range): BP systolic 84–154; BP diastolic 50–72
[2019-09-15 03:49] LABS: ABSOLUTE EOSINOPHILS 0.1 thou/uL (0.0-0.7); ABSOLUTE LYMPHOCYTES 1.7 thou/uL (0.8-5.3); ABSOLUTE NEUTROPHILS 5.1 thou/uL (1.6-8.1); BASOPHILS 0.5 %; EOSINOPHILS 0.7 %; HEMATOCRIT 40.6 % (42.0-52.0); LYMPHOCYTES 21.6 %; MCH 30.9 pg (26.0-34.0); MCV 90.8 fL (80.0-100.0); MONOCYTES 12.5 %; NUCLEATED RBCS 0 /100WBC; PLATELET COUNT* 181 thou/uL (150-400); POLYS 64.7 %; RBC 4.47 mil/uL (4.50-6.00); WBC 7.9 thou/uL (4.0-11.0)
[2019-09-15 03:56] LABS: HEMOGLOBIN 13.8 gm/dL (14.0-18.0)
[2019-09-15 04:07] LABS: CREATININE 1.3 mg/dL (0.6-1.3); POTASSIUM 4.8 mmol/L (3.5-5.1)
[2019-09-15 04:13] LABS: CHOLESTEROL 165 mg/dL (<200); HDL CHOLESTEROL 39 mg/dL (>40); LDL CHOLESTEROL 106 mg/dL (<100); TC:HDL 4.2 Ratio (Not establshd); TRIGLYCERIDE 103 mg/dL (<150); VLDL 21 mg/dL (<40)
[2019-09-15 04:19] LABS: % SATURATION 18 % (20-39); IRON 54 ug/dL (50-175)
[2019-09-15 04:27] LABS: SERUM ASSESSMENT CLEAR
--- NOTE | 2019-09-15 11:15 | NUR ---
MET WITH PT TO DISCUSS HOME SITUATION/DC PLANNING. PT LIVES WTIH A ROOMMATE. STATES HE IS INDEPENDENT AND ACTIVE, USES NO EQUIPMENT AND HASN'T HAD HH OR BEEN TO SNF. DENIES ANY DC NEEDS. WILL FOLLOW
[2019-09-15 12:57] LABS: MAGNESIUM 2.4 mg/dL (1.8-2.4); PHOSPHORUS* 3.4 mg/dL (2.5-4.9)
--- NOTE | 2019-09-15 16:25 | EKG ---
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: MS : 1945 Requested By: Zach Young Order Number: [id number] MD: Drake Parks Measurements Intervals [place] Rate: 65 P: 56 MO: 164 QRS: 59 QRSD: 117 T: 117 QT: 427 QTc: 444 Interpretive Statements Sinus rhythm LVH with secondary repolarization abnormality, possible Anterior Q waves, possibly due to LVH Minimal ST elevation, lateral leads Compared to ECG 01/11/2019 01:52:05 Left ventricular hypertrophy now present Q waves now present ST (T wave) deviation now present Sinus tachycardia no longer present Ventricular premature complex(es) no longer present Myocardial infarct finding no longer present Electronically Signed On 09-15-2019 16:24:04 CDT by Drake Parks [email or web address] <ELECTRONICALLY SIGNED> By: Drake Parks MD, [facility] 09/15/19 1624 1 1 Drake Parks MD, [facility] /EPI
--- NOTE | 2019-09-15 16:25 | EKG ---
[place] [address] ELECTROCARDIOGRAM REPORT Name: STEPHENIE MENDOZA Room: [address] ADM IN M.R.#: [id number] Admission: 09/14/19 Attend Phys: Cristian Carmona MD Discharge: Date of : 49 Date of Service: 09/14/19 1013 Report #: [id number] THIS REPORT FOR: //name// 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: JAYDE : 1945 Requested By: Cristian Carmona Order Number: [id number] Jona MD: Drake Parks Measurements Intervals [place] Rate: 54 P: [place]: QRS: 45 QRSD: 118 T: 133 QT: 416 QTc: 395 Interpretive Statements Junctional rhythm Nonspecific T abnormalities, lateral leads Compared to ECG 01/11/2019 01:52:05 Junctional rhythm now present T-wave abnormality now present Sinus tachycardia no longer present Ventricular premature complex(es) no longer present Myocardial infarct finding no longer present Electronically Signed On 09-15-2019 16:24:34 CDT by Drake Parks [email or web address] <ELECTRONICALLY SIGNED> By: Drake Parks MD, FACC 09/15/19 1624 1013 1013 Drake Parks MD, FAC /EPI
--- NOTE | 2019-09-15 16:25 | EKG ---
[place] [address] ELECTROCARDIOGRAM REPORT Name: STEPHENIE MENDOZA Room: [address] ADM IN M.R.#: [id number] Admission: 09/14/19 Attend Phys: Cristian Carmona MD Discharge: Date of : 49 Date of Service: 09/14/19 1016 Report #: [id number] THIS REPORT FOR: //name// [facility] Test Date: 2019-09-14 Test Time: 10:16:32 Pat Name: STEPHENIE MENDOZA Department: Room: [address] Gender: M Top Icer: AO : 1945 Requested By: Cristian Carmona Order Number: [id number] Reading MD: Drake Parks Measurements Intervals [place] Rate: 53 P: [place]: QRS: 49 QRSD: 116 T: 164 QT: 441 QTc: 414 Interpretive Statements Junctional rhythm Anterior infarct, old Borderline repolarization abnormality Compared to ECG 01/11/2019 01:52:05 Junctional rhythm now present Sinus tachycardia no longer present Ventricular premature complex(es) no longer present Myocardial infarct finding still present Electronically Signed On 09-15-2019 16:24:46 CDT by Drake Parks [email or web address] <ELECTRONICALLY SIGNED> By: Drake Parks MD, FACC 09/15/19 1624 1016 1016 Drake Parks MD, FACC /EPI
--- NOTE | 2019-09-15 16:30 | EKG ---
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: : 1945 Requested By: Cristian Carmona Order Number: [id number] Reading MD: Drake Parks Measurements Intervals [place] Rate: 52 P: [place]: QRS: 54 QRSD: 108 T: 109 QT: 404 QTc: 376 Interpretive Statements Junctional rhythm Possible anteroseptal infarct, old Nonspecific T abnormalities, lateral leads Compared to ECG 01/11/2019 01:52:05 Junctional rhythm now present T-wave abnormality now present Sinus tachycardia no longer present Ventricular premature complex(es) no longer present possible myocardial infarct finding still present Electronically Signed On 09-15-2019 16:29:38 CDT by Drake Parks [email or web address] <ELECTRONICALLY SIGNED> By: Drake Parks MD, [facility] 09/15/19 1629 Drake Parks MD, [facility] /EPI
[2019-09-16 04:00] VITALS: BP 120/51
--- NOTE | 2019-09-16 04:14 | NUR ---
PT ALERT ORIENTED. UP TO BR WITH ASSIST OF ONE. PT GOING TO BR LOST BALANCE AND LOWERED TO FLOOR BY CHARGE NURSE HALEY. NO INJURY. INITAL CARDIAC RHYTHM JUNCTIONAL CONFIRMED BY [address] ALEX NOTIFIED. AFTER PT LOWERED TO FLOOR DR LIMA NOTIFIED. RESTING COMFORTABLY. WCTM
[2019-09-16 07:30] VITALS: BP 126/44
--- NOTE | 2019-09-16 08:42 | NUR ---
CARDIOLOGY AT BEDSIDE TO TRANSPORT PT TO SYSTEMS APPLICATIONS PROGRAMMING LEAD FOR PACE/DEFIB PLACEMENT
--- NOTE | 2019-09-16 10:07 | NUR ---
ASSUMED CARE OF PT 0715. PT SYMPPTOMATIC WITH SAE/JUNCTIONAL RHYTHM. DR. KELLER NOTIFIED AND TO BEDSIDE AT APPROX 0745 WITH PLANS FOR ICD PLACEMENT TODAY. PT MADE NPO. PT OTHERWISE DENIES CP.
--- NOTE | 2019-09-16 10:59 | EKG ---
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
[2019-09-16 11:00] VITALS: BP 127/63
--- NOTE | 2019-09-16 11:00 | EKG ---
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 : 1945 Requested By: Cristian Carmona Order Number: [id number] Jona MD: Drake Parks Measurements Intervals [place] Rate: 40 P: ID: QRS: 53 QRSD: 104 T: 88 QT: 429 QTc: 350 Interpretive Statements Junctional rhythm Consider anterior infarct Nonspecific T abnormalities, lateral leads Compared to ECG 09/15/2019 09:49:58 No significant changes noted Electronically Signed On 09-16-2019 10:59:00 CDT by Drake Parks [email or web address] <ELECTRONICALLY SIGNED> By: Drake Parks MD, FACC 09/16/19 1059 06 06 Drake Parks MD, [facility] /EPI
--- NOTE | 2019-09-16 11:00 | EKG ---
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
[2019-09-16 12:40] VITALS: BP 145/71
[2019-09-16 16:22] VITALS: BP 165/70
[2019-09-16 20:00] VITALS: BP 124/64
[2019-09-17] VITALS (8 sets, daily range): BP systolic 96–146; BP diastolic 48–81
[2019-09-17 04:17] LABS: HEMATOCRIT 35.9 % (42.0-52.0); HEMOGLOBIN 12.2 gm/dL (14.0-18.0); MCH 30.6 pg (26.0-34.0); MCHC 33.9 g/dL (28.0-37.0); MPV 8.1 fl. (7.2-11.1); RBC 3.99 mil/uL (4.50-6.00); RDW-CV 13.8 % (10.5-14.5); WBC 8.7 thou/uL (4.0-11.0)
[2019-09-17 04:39] LABS: CALCIUM 8.5 mg/dL (8.5-10.1); CREATININE 1.1 mg/dL (0.6-1.3); MAGNESIUM 2.2 mg/dL (1.8-2.4); POTASSIUM 5.5 mmol/L (3.5-5.1)
--- NOTE | 2019-09-17 09:47 | CARD ---
[address] [address] CARDIAC CATH REPORT Name: STEPHENIE MENDOZA Room: [address] IN .R.#: [id number] Admission: 09/14/19 Attend Phys: Cristian Carmona MD, F Discharge: Date of : 49 Report #: [id number] THIS REPORT FOR: //name// cc: Anand Quinn Russell J. DO ~ THIS REPORT FOR: //name// ADDENDUM APPROVED REPORT Study performed: 09/14/2019 08:03:28 Patient Details Patient Status: In-Patient Room #: The patient is a 74 year-old male Event Personnel Christy Pierce Mold Repair Technician, Gregory Claudio LANGUAGE AND LITERATURE DIVISION CHAIR Monitor, Patrica Saucedo RTR Mathew Ashraf [employer] Professional Procedures Performed Left Heart Cath w/or w/o Coronaries [id number] [facility] Hemostasis w/ Mynx Indication Abnormal ECG, Cardiomyopathy, Chest pain Risk Factors Peripheral Vascular Disease, Coronary Artery Disease, Tobacco History () Previous Procedures/Diagnoses Previous PCI Admission/Lab Medications/Medications given during procedure Atropine IV 0.5 mg, Fentanyl IV 25 mcg Procedure Narrative The patient was brought emergently to the Cardiac Catheterization Laboratory and was prepped and draped in a sterile manner. The right femoral was infiltrated with 1% Lidocaine subcutaneous anesthesia. A 6F sheath was inserted into the RFA. Coronary angiography was performed using coronary diagnostic catheters. The right coronary system was accessed and visualized with a 6F JR4 catheter. The left coronary system was accessed and visualized with a 6F JL4 catheter. The left ventricle was accessed and visualized with [place] 6[place] [address] CARDIAC CATH REPORT Name: STEPHENIE MENDOZA Room: [address]#: [id number] Admission: 09/14/19 Attend Phys: Cristian Carmona MD, F Discharge: Date of : 49 Report #: [id number] catheter. Left ventricular/Aortic Valve gradient assessed via catheter pullback. Left ventriculogram was performed in [place] projection. Closure device was deployed with a 6 Fr Mynx. The patient tolerated the procedure well and there were no complications associated with the procedure. There was no hematoma. Intraoperative Conscious Sedation Fentanyl 25 mcg Procedure start time 08:51am. Procedure end time 09:17am. Fluoro Time: 1.8 minutes Dose: DAP 24813 cGycm2 490 mGy Contrast Type and Amount: Visipaque 85 ml Coronary Angiography The patient's coronary anatomy is right dominant. Diagnostic Cath Left Main 0% stenosis LAD stent in proximal lad with 0% stenosis. Mid lad with 50% stenosis Diagonal 1 proximal stent with 100% stenosis Circumflex mid stent with 60% stenosis Right Coronary proximally 100% stenosis and fills by left collaterals Left Ventriculography The left ventricular ejection fraction is estimated to be 25-30%. Left ventricular wall motion abnormalities are present. There is 1+ mitral insufficiency. severe hypokinesis of the inferior wall and akinesis lateral wall Hemodynamics The aortic pressure is 142/69 mmHg with a mean of 92 mmHg. The left ventricular pressure is 153/12 mmHg with a mean of mmHg. The left ventricular end diastolic pressure is 22 mmHg. Conclusion 1. No sifnificant restenosis of stents in the lad 2. 60% restenosis of stents in the circumflex artery 3. 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 chronic occlusion of the rca 5. LVEF 25-30% 6. LVEDP [address] [place] [address] CARDIAC CATH REPORT Name: STEPHENIE MENDOZA Room: [address] IN [facility]#: [id number] Admission: 09/14/19 Attend Phys: Cristian Carmona MD, F Discharge: Date of : 49 Report #: [id number] Recommendations consider ICD implantation <ELECTRONICALLY SIGNED> By: Rico Koch MD, FACC 09/17/1944 5 0946Rico Koch MD, FACC /INF
--- NOTE | 2019-09-17 11:32 | NUR ---
ASSUMED CARE OF PT AT 0730. PT RESTING AT EDGE OF BED WAITING FOR BREAKFAST. A&0X4, DENIES ANY PAIN OR SHORTNESS OF BREATH AT THIS TIME. TRACING AV PACED ON THE CASE WORKER. LEFT UE IMMOBILIZER IN PLACE. ON 2L NC SAT 95%. PT UP WITH SBA TO BATHROOM. IVF. PT POTASSIUM NOTED TO BE 5.5 THIS AM. PO SCHEDULED POTASSIUM HELD. DR CRUZ HERE TO SEE PT. ORDERS RECEIVED FOR ONE TIME ALBUTEROL BREATHING TREATMENT AND ONE TIME CALCIUM GLUCONATE IVPB. REFER TO EMAR. LEFT CHEST PACEMAKER INCISION- DRESSING IN PLACE-C/D/I. PT GOAL FOR TODAY IS INCREASE ACTIVITY, MONITOR LABS AND TITRATE OXYGEN. AM ASSESSMENT CHARTED. MEDICATIONS PER SEP. PT REPOSITIONS SELF WITH REMINDERS. HOURLY ROUNDING OBSERVED. BED IN LOW POSITION. CALL LIGHT WITHIN REACH. WILL CONTINUE PLAN OF CARE.
--- NOTE | 2019-09-17 16:49 | EKG ---
[place] [address] ELECTROCARDIOGRAM REPORT Name: STEPHENIE MENDOZA Room: [address] ADM IN M.R.#: [id number] Admission: 09/14/19 Attend Phys: Cristian Carmona MD Discharge: Date of : 49 Date of Service: 09/17/19 1330 Report #: [id number] THIS REPORT FOR: //name// [facility] Test Date: 2019-09-17 Test Time: 13:30:04 Pat Name: STEPHENEI MENDOZA Department: Room: [address] Gender: M Zipper Repairer: : 1945 Requested By: Cristian Carmona Order Number: [id number] Jona MD: Rico Koch Measurements Intervals [place] Rate: 130 P: [place]: QRS: 39 QRSD: 121 T: 142 QT: 289 QTc: 425 Interpretive Statements Atrial fibrillation with rapid ventricular response with occasional wide QRS beats Nonspecific intraventricular conduction delay Repol abnrm suggests ischemia, lateral leads Compared to ECG 09/15/2019 20:08:53 Intraventricular conduction delay now present Early repolarization now present Possible ischemia now present ST (T wave) deviation now present Junctional rhythm no longer present T-wave abnormality no longer present Electronically Signed On 09-17-2019 16:48:45 CDT by Rico Koch [email or web address] <ELECTRONICALLY SIGNED> By: Rico Koch MD, [facility] 09/17/19 1648 29 29 Rico Koch MD, [facility] /EPI
--- NOTE | 2019-09-17 18:26 | NUR ---
NO ACUTE CHANGES THROUGHOUT SHIFT. REFER TO CHARTING. AMIO GTT CONTINUES TO INFUSE AT 33.3. TRACING AFIB ON THE BUS COMPANY MANAGER. RATE IN THE 90'S-LOW 100'S. ON 2L NC SAT UPPER 90'S. SHORTNESS OF BREATH IMPROVED WITH 02 SUPPORT AND INFUSION OF AMIO. PT UP WITH SBA TO BATHROOM. NEW IV PLACED TO RIGHT WRIST 20G- FLUIDS INFUSING. POTASSIUM TRENDING DOWN. MEDICATIONS PER SEP. PT REPOSITIONS SELF. HOURLY ROUNDING OBSERVED. BED IN LOW POSITION. CALL LIGHT WITHIN REACH. WILL CONTINUE PLAN OF CARE.
[2019-09-18] VITALS (21 sets, daily range): BP systolic 83–156; BP diastolic 41–96
[2019-09-18 05:46] LABS: ALBUMIN 2.9 g/dL (3.4-5.0); CREATININE 1.2 mg/dL (0.6-1.3); MAGNESIUM 2.1 mg/dL (1.8-2.4); PHOSPHORUS* 5.2 mg/dL (2.5-4.9)
[2019-09-18 05:50] LABS: POTASSIUM 6.3 mmol/L (3.5-5.1)
[2019-09-18 11:08] LABS: CALCIUM 8.3 mg/dL (8.5-10.1); CREATININE 1.5 mg/dL (0.6-1.3)
[2019-09-18 11:10] LABS: POTASSIUM 7.6 mmol/L (3.5-5.1)
--- NOTE | 2019-09-18 11:20 | CARD ---
[address] [address] CARDIAC CATH REPORT Name: STEPHENIE MENDOZA Room: [address] IN ..#: [id number] Admission: 09/14/19 Attend Phys: Skip Fernández MD Discharge: Date of : 49 Report #: [id number] THIS REPORT FOR: //name// cc: Anand Quinn Russell J. DO ~ THIS REPORT FOR: //name// ADDENDUM APPROVED REPORT Study performed: 09/16/2019 09:30:13 Patient Status: In-Patient Room #: Event Personnel: Gregory ClaudioIS Monitor, Gali Crum RN RN, Merrick Garcia RTR Charly Ashraf Michael Environmental Coordinator Exam: dual-chamber ICD generator placement with atrial and pacing defibrillator lead placement. Indications: ischemic cardiomyopathy and symptomatic heart block with bradycardia. The patient is a 74 year-old male with a history of heart block and ischemic cardiomyopathy. Patient Info Last EF%: we 5-30% Date: 3H 20 NYHA Heart Class: III Conscious Sedation Fentanyl 25 mcg Versed 1 mg Dual Chanmber ICD inserted Start 936 En d1015 Implanted Devices: Biotronik Ilivia 7 DRT, serial #[id number] dual-chamber pacing defibrillator generator. Biotronik Solia S 53, serial #[id number] atrial lead. Biotronik Plexa ProMRI S 65, model #[id number] pacing defibrillator lead. Procedure The patient underwent informed consent. We discussed the details of the procedure including the risks, which include, but not limited to bleeding, infection, vascular damage, cardiac perforation, and pneumothorax. After informed consent was obtained the patient was brought to the interventional radiology laboratory. [place] [address] CARDIAC CATH REPORT Name: STEPHENIE MENDOZA Room: [address] IN [facility].#: [id number] Admission: 09/14/19 Attend Phys: Skip Fernández MD Discharge: Date of : 49 Report #: [id number] prepped and draped in sterile fashion. Local anesthesia was achieved with 1% lidocaine. Next after an initial incision was made a device pocket was formed over the left pectoralis muscle using electrocautery and blunt dissection. A micropuncture kit was utilized to access the left subclavian vein and ultimately a safety J guidewire advanced to the area of the right atrium under fluoroscopic guidance. The wire was externally fixed using a Delfina forcep. Utilizing the micropuncture kit for a second time the left subclavian vein was again accessed and a second safety J guidewire advanced to the right atrium under fluoroscopic guidance. Next a 8 Tajik tear-away introducer was advanced over the guidewire. The dilator and guidewire were removed and the pacing defibrillator lead advanced to a secure position within the right ventricular apex. The lead was actively fixed. Thresholds were checked and deemed to be satisfactory. The tear-away introducer was removed. Next utilizing the remaining guidewire a second 7 Tajik tear-away introducer was advanced over the guidewire. The dilator and guidewire were removed and a right atrial lead advanced to the right atrial appendage under fluoroscopic guidance. The lead was actively fixed. Thresholds were checked and deemed to be satisfactory. The tear-away introducer was removed. Next after adequate slack was assured the atrial and pacing defibrillator lead were secured within the device pocket using the designated cuff and 0 silk suture. The pocket was then flushed with antibody solution. Next a dual-chamber pacing ICD generator was attached to the atrial and ICD generator lead. Redundant leads and device generator were placed within the pocket. The deep tissues were closed using interrupted stitches of 2-0 Vicryl. The skin incision was then closed with a single subcuticular stitch of 4-0 Vicryl. Several Steri-Strips were placed across the incision and a sterile Telfa dressing covered with a Tegaderm. The patient tolerated the procedure well without complication. Electrode Parameters P Wave: 1.3 mV R Wave: 16 mV Atrial Threshold: 1.3 V at 0.40 ms. Ventricular Threshold: 0.9 V at 0.40 ms. Atrial Resistance: 585 ohms Ventricular Resistance: 495 ohms Complications The patient tolerated the procedure well and there were no complications associated with the procedure. Conclusion 1. Symptomatic bradycardia with complete heart block. 2. [place] [address] CARDIAC CATH REPORT Name: KELLYKRAIG DICKINSONE CHARMAINE Room: [address] IN M.R.#: [id number] Admission: 09/14/19 Attend Phys: Skip Fernández MD Discharge: Date of : 49 Report #: [id number] 3. Successful placement of a dual-chamber pacing ICD. Recommendations 1. Follow-up site check in one week. 2. Follow-up device interrogation in one to 2 months. <ELECTRONICALLY SIGNED> By: Drake Parks MD, FACC 09/18/19 1119 18 18Micrenata Parks MD, FACC /INF
[2019-09-18 11:54] LABS: BE -7.8 mmol/L (-2 to +3); PCO2 38.2 mmHg (35.0-45.0); PO2 94.5 mmHg (75.0-100.0)
[2019-09-18 11:58] LABS: pH 7.293 (7.340-7.450)
--- NOTE | 2019-09-18 12:15 | NUR ---
ASSUMED CARE OF PT AT 0730. PT LYING IN BED, COOL, CLAMMY, DIAPHORETIC. BLOOD PRESSURE 90'S/40'S. BLOOD GLUCOSE 116. AMIO GTT DISCONTINUED BY NOC SHIFT. TRACING AV PACED ON THE OCCUPATIONAL THERAPY ASSISTANT. RATE IN THE 60'S. POTASSIUM THIS AM 6.3. KAYEXALATE GIVEN. RECHECK OF POTASSIUM 7.6. EKG OBTAINED- V PACED 60. DR ELMORE HERE ON FLOOR- ORDERS RECEIVED FOR ABG, INSERT ROCHA, OBTAIN URINALYSIS, NEPHRO CONSULT AND TRANSFER ICU. CRITICAL PH 7.[address] ELMORE. ROCHA CATHETER INSERTED- DARK YELLOW OUTPUT-URINALYSIS SENT TO LAB. PT ON 2L NC SAT 98%. AM ASSESSMENT CHARTED. MEDICATIONS PER SEP. REPORT CALLED TO LIV IN ICU, PT TRANSFERRED TO BED 1 ICU VIA BED WITH ALL BELONGINGS AND CHART.
[2019-09-18 12:26] LABS: URINE POTASSIUM-RANDOM 83.4 mmol/L
[2019-09-18 12:29] LABS: URINE BLOOD TRACE (Negative); URINE CLARITY CLEAR; URINE COLOR YELLOW; URINE GLUCOSE-RANDOM NEGATIVE (Negative); URINE KETONES NEGATIVE (Negative); URINE LEUKOCYTES-REFLEX NEGATIVE (Negative); URINE NITRITE-REFLEX NEGATIVE (Negative); URINE PROTEIN TRACE (Negative); URINE SPECIFIC GRAVITY >= 1.030 (1.005-1.030); URINE UROBILINOGEN 0.2 E.U./dl (0.2-1.0)
[2019-09-18 12:33] LABS: ICTOTEST (BILI CONFIRMATORY) Negative (Negative); URINE BILIRUBIN 1+ (Negative)
--- NOTE | 2019-09-18 16:44 | EKG ---
[place] [address] ELECTROCARDIOGRAM REPORT Name: STEPHENIE MENDOZA Room: [address] ADM IN M.R.#: [id number] Admission: 09/14/19 Attend Phys: Skip Fernández, Discharge: Date of : 49 Date of Service: 09/18/19 1116 Report #: [id number] THIS REPORT FOR: //name// [facility] Test Date: 2019-09-18 Test Time: 11:16:53 Pat Name: STEPHENIE MENDOZA Department: Room: [facility] Gender: M Health Inspector: AM : 1945 Requested By: Skip Fernández Order Number: [id number] Jona MD: Rico Koch Measurements Intervals [place] Rate: 60 P: 0 NC: 73 QRS: -85 QRSD: 165 T: 89 QT: 467 QTc: 467 Interpretive Statements Ventricular-paced rhythm No further analysis attempted due to paced rhythm Compared to ECG 09/17/2019 13:30:04 Atrial fibrillation no longer present Electronically Signed On 09-18-2019 16:43:23 CDT by Rico Koch [email or web address] <ELECTRONICALLY SIGNED> By: Rico Koch MD, [facility] 09/18/19 1643 1116 1116 Rico Koch MD, [facility] /EPI
[2019-09-18 17:02] LABS: CALCIUM 8.2 mg/dL (8.5-10.1); CREATININE 1.5 mg/dL (0.6-1.3)
[2019-09-18 17:08] LABS: POTASSIUM 6.4 mmol/L (3.5-5.1)
--- NOTE | 2019-09-18 18:09 | 2DMMODE ---
[place] [address] 2 D/M-MODE ECHOCARDIOGRAM Name: STEPHENIE MENDOZA Room: [address] IN [facility]#: [id number] Admission: 09/14/19 Attend Phys: Skip Fernández, Discharge: Date of : 49 Date of Service: 09/18/19 1808 Report #: [id number] THIS REPORT FOR: cc: Anand Quinn Russell J. DO Liston, Michael J. MD [facility] ~ APPROVED REPORT Study performed: 09/18/2019 15:00:42 EXAM: Limited 2D Echocardiogram Patient Location: In-Patient Room #: 001 Status: routine BSA: 1.98 HR: 60 bpm BP: 115/67 mmHg Rhythm: NSR Other Information Study Quality: Good Indications Non STEMI Tricuspid Valve RAP Estimate: 5.00 mmHg TR Peak Gr.: 17.47 mmHg RVSP: 22.00 mmHg PA Pressure: 22.00 mmHg Left Ventricle The left ventricle is normal size. There is akinesis of the inferior wall and global hypokinesis. There is normal left ventricular wall thickness. Left ventricular systolic function is mildly decreased. LVEF is 45-50%. Right Ventricle The right ventricle is normal size. The right ventricular systolic function is normal. Pacemaker lead is present in the right ventricle. Atria Left atrium is mildly dilated. The right atrium size is normal[place] [address] 2 D/M-MODE ECHOCARDIOGRAM Name: STEPHENIE MENDOZA Room: [address] IN .R.#: [id number] Admission: 09/14/19 Attend Phys: Skip Fernández, Discharge: Date of : 49 Date of Service: 09/18/191807 Report #: [id number] Mild aortic valve sclerosis. No aortic regurgitation is present. Mitral Valve The mitral valve is normal in structure. Trace mitral regurgitation. Tricuspid Valve The tricuspid valve is normal in structure. Mild tricuspid regurgitation. No pulmonary hypertension. Pulmonic Valve Pulmonic valve is not well visualized. Great Vessels The aortic root is normal in size. IVC is normal in size and collapses >50% with inspiration. Pericardium There is no pericardial effusion. <Conclusion> The left ventricle is normal size. Left ventricular systolic function is mildly decreased. LVEF is 45-50%. There is akinesis of the inferior wall and global hypokinesis. Pacemaker lead is present in the right ventricle. Left atrium is mildly dilated. Mild tricuspid regurgitation. No pulmonary hypertension. <ELECTRONICALLY SIGNED> By: Drake Parks MD, FACC 09/18/191807 07 1808 Drake Parks MD, FACC /INF
[2019-09-19] VITALS (13 sets, daily range): BP systolic 108–129; BP diastolic 55–75
[2019-09-19 04:04] LABS: HEMATOCRIT 32.8 % (42.0-52.0); HEMOGLOBIN 11.2 gm/dL (14.0-18.0); MCH 30.8 pg (26.0-34.0); MCHC 34.2 g/dL (28.0-37.0); MCV 90.3 fL (80.0-100.0); MPV 8.2 fl. (7.2-11.1); RBC 3.63 mil/uL (4.50-6.00); RDW-CV 13.6 % (10.5-14.5); WBC 7.4 thou/uL (4.0-11.0)
[2019-09-19 04:12] LABS: CALCIUM 7.9 mg/dL (8.5-10.1); CREATININE 1.2 mg/dL (0.6-1.3); MAGNESIUM 1.9 mg/dL (1.8-2.4)
[2019-09-19 04:13] LABS: ALBUMIN 2.5 g/dL (3.4-5.0); CALCIUM 7.4 mg/dL (8.5-10.1); CREATININE 1.2 mg/dL (0.6-1.3); PHOSPHORUS* 4.4 mg/dL (2.5-4.9)
[2019-09-19 04:15] LABS: POTASSIUM 4.6 mmol/L (3.5-5.1)
[2019-09-19 04:16] LABS: POTASSIUM 4.7 mmol/L (3.5-5.1)
--- NOTE | 2019-09-19 12:03 | NUR ---
ICU rounds: Pt currently working with PT. A&O. M/s tele status. Possible dc tomorrow.
--- NOTE | 2019-09-19 17:46 | CON ---
[address] [address] CONSULTATION Name: STEPHENIE MENDOZA Room: [address] IN M.R.#: [id number] Admission: 09/14/19 Attend Phys: Skip Fernández MD Discharge: Date of : 49 Report #: [id number] THIS REPORT FOR: //name// cc: Anand Quinn Russell J. DO ~ THIS REPORT FOR: //name// CC: Skip Quinn NEPHROLOGY CONSULTATION CONSULTING PHYSICIAN: Skip Fernández MD REASON FOR CONSULTATION: Acute kidney injury. HISTORY OF PRESENT ILLNESS: A 74-year-old gentleman who came in with a chief complaint of chest pain and unstable angina. He underwent a cardiac catheterization. He is also found to have symptomatic junctional bradycardia during this hospital course and underwent implantation of an ICD. He did not have any other intervention done. I am asked to see him because of a rise in his serum creatinine to 1.4 and also rather significant hyperkalemia with potassium up to 7.6 and sodium down to 124. He was on lisinopril and Aldactone and at one point did have low potassium. He also had become acidotic. He did receive some temporizing measures to help stabilize his electrolyte imbalances. He feels fine right now, has no complaints, is resting comfortable in bed. Denies any constipation. Denies really any other complaints. REVIEW OF SYSTEMS: Constitutional, psych, heme, eyes, ENT, respiratory, cardiac, GI, , endocrine, all negative except as documented above. PAST MEDICAL HISTORY: Coronary artery disease; peripheral arterial disease; carotid disease with history of carotid endarterectomy; junctional bradycardia, symptomatic, status post ICD placement this hospitalization; history of COPD. SOCIAL HISTORY: Previous tobacco use. CURRENT MEDICATIONS: Reviewed. FAMILY HISTORY: Not pertinent in this 74-year-old gentleman. PHYSICAL EXAMINATION: VITAL SIGNS: Blood pressure is 144/82, pulse 60, respirations 20, temperature 36.5. GENERAL: No acute distress. EYES: Open. EARS: [place] [address] CONSULTATION Name: KELLYSTEPHENIE CHARMAINE Room: [address] IN [facility]#: [id number] Admission: 09/14/19 Attend Phys: Skip Fernández MD Discharge: Date of : 49 Report #: [id number] NECK: Supple. CARDIOVASCULAR: Regular rate. LUNGS: No crackles. ABDOMEN: Soft. MUSCULOSKELETAL: Nontender. PSYCHIATRIC: Awake, alert. LABORATORY DATA: Sodium 124, potassium 7.6, chloride 96, bicarbonate 19, BUN 41, creatinine 1.5, glucose 129, calcium 8.3. CK 171. TSH was 6.7. ASSESSMENT: 1. Acute kidney injury with creatinine of 1.4, baseline creatinine probably around 1. Looking at previous values, he did have a creatinine of 0.4 on 09/14/2019, but this may have been an error as it seems to be an outlier. On 09/15/2019, his creatinine was 1.3. UA is noted. 2. Severe hyperkalemia in the setting of lisinopril, Aldactone and renal insufficiency. 3. Hyponatremia. 4. Metabolic acidosis with pH of ____. 5. Hypoalbuminemia with an albumin of 2.9. 6. Coronary artery disease with recent non-ST elevation myocardial infarction, status post cardiac catheterization. 7. Chronic obstructive pulmonary disease. 8. History of carotid endarterectomy. 9. History of diastolic heart failure. 10. Junctional bradycardia, status post ICD. PLAN: 1. He is on bicarbonate. Lisinopril and Aldactone have been discontinued. 2. Check CK. 3. Check TSH. 4. He did receive some temporizing measures. We will recheck lab. He is making urine. 5. Check ultrasound. 6. A 2-gram potassium dietary restriction. 7. I did discuss with him the possibility of needing a temporary dialysis and informed consent was obtained to proceed should that be necessary if the potassium remains refractory to medical therapy. We will follow along with you. Thank you for requesting my opinion in the care and management of this patient. <ELECTRONICALLY SIGNED> By: Susan Desai MD 09/19/19 1746 1722 [id number] Desai MD /nt
--- NOTE | 2019-09-19 18:57 | NUR ---
RECEIVED PT FROM ICU AT 1800. GET SITUATED TO ROOM. I AGREE WITH ANNETTA ELLINGTONACCESS REPRESENTATIVE. WILL CONTINUE TO MONITOR.
[2019-09-20] VITALS: BP 135/81
[2019-09-20 04:00] VITALS: BP 132/81
[2019-09-20 04:31] LABS: MCH 31.2 pg (26.0-34.0); MCHC 34.4 g/dL (28.0-37.0); MCV 90.6 fL (80.0-100.0); MPV 8.1 fl. (7.2-11.1); RBC 3.53 mil/uL (4.50-6.00); RDW-CV 13.3 % (10.5-14.5)
[2019-09-20 04:52] LABS: CREATININE 0.9 mg/dL (0.6-1.3); POTASSIUM 4.8 mmol/L (3.5-5.1)
--- NOTE | 2019-09-20 06:56 | NUR ---
ASSUMED PATIENT CARE AT 1900. ASSESSMENT COMPLETED CHARTED. PATIENT IS A/V PACED ON THE MONITOR. HOURLY ROUNDING IN PLACE FOR PATIENT SAFETY. CLWR. PACEMAKER SITE IS [facility].
[2019-09-20 08:00] VITALS: BP 120/63
[2019-09-20] MEDS ORDERED: VITAMIN D21250 MC1 PO (08:57)
[2019-09-20] MEDS ORDERED: PACERONE 200 M200 M1 PO (08:57)
[2019-09-20] MEDS ORDERED: CALCIUM 600 +1 EAC1 PO (08:57)
--- NOTE | 2019-09-20 10:16 | NUR ---
ASSUMED PT CARE AT 0800, AOX4, UP AD GINNY, O2 SAT 90'S 1L NC. PT DENIES PAIN. PT FOR DISCHARGE. PT GOAL TO WEAN OFF O2 TODAY. FOR RT REST AND EXERCISE. VSS, AM ASSESSMENT CHARTED, MEDS GIVEN PER MAR, CALL LIGHT WITHIN REACH, WILL CONTINUE TO MONITOR.
[2019-09-20 11:57] VITALS: BP 115/87
[2019-09-20 13:12] VITALS: BP 117/55
--- NOTE | 2019-09-20 13:49 | NUR ---
HOME O2 SET UP THROUGH . [facility] TO [facility] O2 TANK TO HOSPITAL PRIOR TO PT DISCHARGING. [facility] CALLED - VOICE MESSAGE LEFT IN REGRARD TO PT NEEDING A 7 DAY CARDIOLOGY APPOINTMENT PER HEART FAILURE GUIDLINES, WITH TODAY BEING DAY ONE.
[2019-09-20] MEDS ORDERED: PLAVIX 75 MG TA75 M1 PO (14:22)
[2019-09-20] MEDS ORDERED: COREG6.25 MG PO (14:22)
[2019-09-20] MEDS ORDERED: LIPITOR40 MG PO (14:22)
--- NOTE | 2019-09-20 16:27 | NUR ---
DISCHARGED PLAN DISCUSS WITH PT. MEDICATION SEND TO PHARMACY BY PROVIDER. IV, TELE REMOVED. PACEMAKER CARE ADVISED. ALL BELONGINGS PACKED AND CHECKED. LEFT THE UNIT AT 1626.
== END 2019-09-20 16:26 | disposition home or self-care (01) | DRG 222 ==
LOC: M.ERS 07:59 → M.2W 08:35 → M.TBA-CV 08:35 → M.ERS 08:35 → M.TBA-CV 09:26 → M.2W 09:26 → M.TBA-CV 09:50 → M.2W 09-18 11:44 → M.ICU 09-18 12:45 → M.2W 09-19 18:34
PROVIDERS: Emergency Medicine Emergency Medical Services; Family Medicine; Internal Medicine; Internal Medicine Cardiovascular Disease; Internal Medicine Nephrology; ADMIT Internal Medicine
PROC: 4A023N7 Measurement of Cardiac Sampling and Pressure, Left Heart, Percutaneous Approach (ICD-10-PCS; principal; 2019-09-14)
PROC: B215YZZ Fluoroscopy of Left Heart using Other Contrast (ICD-10-PCS; principal; 2019-09-14)
PROC: B211YZZ Fluoroscopy of Multiple Coronary Arteries using Other Contrast (ICD-10-PCS; principal; 2019-09-14)
PROC: 0JH608Z Insertion of Defibrillator Generator into Chest Subcutaneous Tissue and Fascia, Open Approach (ICD-10-PCS; 2019-09-16)
PROC: 02H63KZ Insertion of Defibrillator Lead into Right Atrium, Percutaneous Approach (ICD-10-PCS; 2019-09-16)
PROC: 02HK3KZ Insertion of Defibrillator Lead into Right Ventricle, Percutaneous Approach (ICD-10-PCS; 2019-09-16)
DX: I21.4 Non-ST elevation (NSTEMI) myocardial infarction (principal); E43 Unspecified severe protein-calorie malnutrition; J96.01 Acute respiratory failure with hypoxia; I50.43 Acute on chronic combined systolic (congestive) and diastolic (congestive) heart failure; N17.0 Acute kidney failure with tubular necrosis; E87.1 Hypo-osmolality and hyponatremia; E87.2 Acidosis; I44.2 Atrioventricular block, complete; I25.110 Atherosclerotic heart disease of native coronary artery with unstable angina pectoris; J44.9 Chronic obstructive pulmonary disease, unspecified; E87.6 Hypokalemia; I73.9 Peripheral vascular disease, unspecified; I25.5 Ischemic cardiomyopathy; E87.5 Hyperkalemia; G89.29 Other chronic pain; D64.9 Anemia, unspecified; M54.9 Dorsalgia, unspecified; E78.5 Hyperlipidemia, unspecified; I49.5 Sick sinus syndrome; E83.51 Hypocalcemia; I11.0 Hypertensive heart disease with heart failure; Z79.899 Other long term (current) drug therapy; Z79.2 Long term (current) use of antibiotics; Z79.82 Long term (current) use of aspirin; Z88.1 Allergy status to other antibiotic agents; Z88.2 Allergy status to sulfonamides; Z87.891 Personal history of nicotine dependence; Z95.5 Presence of coronary angioplasty implant and graft; Z72.89 Other problems related to lifestyle; Z82.3 Family history of stroke; I25.2 Old myocardial infarction; Z88.0 Allergy status to penicillin; Z88.7 Allergy status to serum and vaccine; Z91.030 Bee allergy status; Z68.28 Body mass index [BMI] 28.0-28.9, adult; Z79.51 Long term (current) use of inhaled steroids; Z79.01 Long term (current) use of anticoagulants; Z23 Encounter for immunization

== ENCOUNTER 2019-10-05 08:13 | Inpatient (IN) | payer MEDICARE ==
[~2019-10-05] VITALS: Ht 172.7 cm; Wt 84.5 kg
[~2019-10-05 08:13] MED LIST changes: +CALCIUM 600 +1 EAC1 PO; +PACERONE 200 M200 M1 PO; +VITAMIN D21250 MC1 PO
[2019-10-05 08:17] VITALS: BP 122/74
[2019-10-05 08:59] LABS: ABSOLUTE EOSINOPHILS 0.1 thou/uL (0.0-0.7); ABSOLUTE LYMPHOCYTES 1.3 thou/uL (0.8-5.3); ABSOLUTE MONOCYTES 0.8 thou/uL (0.0-1.2); ABSOLUTE NEUTROPHILS 4.3 thou/uL (1.6-8.1); BASOPHILS 0.3 %; EOSINOPHILS 1.7 %; HEMATOCRIT 35.5 % (42.0-52.0); HEMOGLOBIN 11.8 gm/dL (14.0-18.0); LYMPHOCYTES 20.3 %; MCH 30.5 pg (26.0-34.0); MCHC 33.2 g/dL (28.0-37.0); MONOCYTES 11.7 %; MPV 7.5 fl. (7.2-11.1); NUCLEATED RBCS 0 /100WBC; PLATELET COUNT* 212 thou/uL (150-400); RBC 3.86 mil/uL (4.50-6.00); RDW-CV 14.3 % (10.5-14.5); WBC 6.5 thou/uL (4.0-11.0)
[2019-10-05 09:17] LABS: APTT 40.7 Seconds (25.0-31.3); INR 2.3; PROTIME 23.2 Seconds (9.20-11.50)
[2019-10-05 09:20] LABS: CALCIUM 8.7 mg/dL (8.5-10.1); CREATININE 1.2 mg/dL (0.6-1.3)
[2019-10-05 09:25] LABS: ALBUMIN 2.9 g/dL (3.4-5.0); MAGNESIUM 1.8 mg/dL (1.8-2.4); TOTAL BILIRUBIN 0.5 mg/dL (<0.1-1.0); TOTAL PROTEIN 6.5 g/dL (6.4-8.2)
[2019-10-05 12:24] VITALS: BP 129/60
[2019-10-05 13:15] VITALS: BP 124/64
[2019-10-05 15:51] VITALS: BP 151/98
[2019-10-05 20:44] VITALS: BP 105/59
[2019-10-06] VITALS: BP 125/59
[2019-10-06 03:30] VITALS: BP 141/73
[2019-10-06 04:39] LABS: ALBUMIN 2.8 g/dL (3.4-5.0); CALCIUM 8.9 mg/dL (8.5-10.1); CREATININE 1.3 mg/dL (0.6-1.3); MAGNESIUM 1.8 mg/dL (1.8-2.4); POTASSIUM 3.5 mmol/L (3.5-5.1); TOTAL BILIRUBIN 0.6 mg/dL (<0.1-1.0); TOTAL PROTEIN 6.2 g/dL (6.4-8.2); TROPONIN-I LEVEL 0.1 ng/mL (<0.06)
[2019-10-06 08:00] VITALS: BP 129/64
--- NOTE | 2019-10-06 10:21 | CON ---
[address] [address] CONSULTATION Name: STEPHENIE MENDOZA Room: [address] IN M.R.#: [id number] Admission: 10/05/19 Attend Phys: Skip Fernández MD Discharge: Date of : 49 Report #: [id number] THIS REPORT FOR: //name// cc: Anand Quinn Russell J. DO ~ THIS REPORT FOR: //name// CC: Skip Quinn DATE OF SERVICE: 10/05/2019 CARDIOLOGY CONSULTATION HISTORY OF PRESENT ILLNESS: The patient is a very pleasant 74-year-old male with significant underlying coronary artery disease and ischemic cardiomyopathy in that context. He was recently seen in our office for decompensation of heart failure and oral Lasix was added. Despite that, he has noted increased abdominal girth and significant lower extremity edema with fullness in the upper abdomen making it difficult for him to breathe. There has been no che central chest discomfort suggestive of ischemic pain in the context of known coronary artery disease, status post prior percutaneous coronary intervention. He also has a history of hyperlipidemia and obstructive airways disease. MEDICATIONS: Have included amiodarone, aspirin, atorvastatin, calcium, carvedilol, clopidogrel, fluticasone and Singulair. He has been anticoagulated with Xarelto. PAST MEDICAL HISTORY: Remarkable for peripheral vascular disease, COPD, prior CVA, hypertension, hyperlipidemia. SOCIAL HISTORY: There is significant prior cigarette smoking history. REVIEW OF SYSTEMS: Remarkable for his significant dyspnea in the setting of known chronic obstructive pulmonary disease and congestive heart failure. PHYSICAL EXAMINATION: GENERAL: Demonstrates an elderly male in mild distress. VITAL SIGNS: His blood pressure is 130/70, pulse rate is 84 and irregular, and respirations are 22 per minute. NECK: Jugular venous pressure is increased. CHEST: Reveals basilar crackles. CARDIAC: Reveals an irregular rhythm with a soft systolic murmur. ABDOMEN: Moderately obese. EXTREMITIES: Reveal moderately severe [place] [address] CONSULTATION Name: STEPHENIE MENDOZA Room: [address] IN ..#: [id number] Admission: 10/05/19 Attend Phys: Skip Fernández MD Discharge: Date of : 49 Report #: [id number] Electrocardiogram demonstrates atrial fibrillation with a moderate response alternating with appropriate function of a VVI escape pacing system. An ICD was recently implanted by Dr. Parks in the context of the patient's ischemic cardiomyopathy. Chest x-ray is reviewed and demonstrates cardiomegaly with pulmonary venous hypertension. LABORATORY DATA: Sodium is 143, potassium 4.0, BUN 21, creatinine 1.2. NT-BNP 2149. Hemoglobin 11.8, white blood cell count 6500 with 212,000 platelets. IMPRESSION: 1. Decompensated congestive heart failure. 2. Ischemic cardiomyopathy. 3. Coronary artery disease, status post prior percutaneous coronary intervention. 4. Status post recent implantation of an implantable cardioverter-defibrillator with pacing capability. 5. Paroxysmal atrial fibrillation. 6. Chronic obstructive pulmonary disease. RECOMMENDATIONS: 1. Augmented parenteral diuresis with Lasix 80 mg IV b.i.d., potentiated by Zaroxolyn with subsequent modifications in doses as required by his clinical course. 2. We would continue other cardiac medicines as utilized including oral anticoagulation with Xarelto. 3. The chest discomfort he describes is more of a fullness and does not suggest recurrent ischemic pain. The patient seen in the ER going to Telemetry on 10/05/2019. Critical care time is 35 minutes from 10:35 to 11:10 on 10/05/2019. <ELECTRONICALLY SIGNED> By: Rico Koch MD, FACC 10/06/19 1021 1114 1137Rico Koch MD, FACC /nt
--- NOTE | 2019-10-06 10:25 | EKG ---
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1945 Requested By: Zach Young Order Number: [id number] MD: Cristian Carmona Measurements Intervals [place] Rate: 84 P: ME: QRS: 49 QRSD: 117 T: -89 QT: 353 QTc: 418 Interpretive Statements Afib/flut and V-paced complexes No further rhythm analysis attempted due to paced rhythm Nonspecific intraventricular conduction delay Borderline low voltage, extremity leads Repol abnrm suggests ischemia, anterolateral Compared to ECG 09/18/2019 11:16:53 atrial paced beats no longer noted Electronically Signed On 10-06-2019 10:24:18 CDT by Cristian Carmona [email or web address] <ELECTRONICALLY SIGNED> By: Cristian Carmona MD, [facility] 10/06/19 1024 7 7 Cristian Carmona MD, [facility] /EPI
--- NOTE | 2019-10-06 10:26 | EKG ---
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
[2019-10-06 12:25] VITALS: BP 98/46
[2019-10-06 17:04] VITALS: BP 97/58
[2019-10-06 20:54] VITALS: BP 98/60
[2019-10-07] VITALS (7 sets, daily range): BP systolic 85–126; BP diastolic 53–80
[2019-10-07 04:34] LABS: CALCIUM 10.4 mg/dL (8.5-10.1); CREATININE 1.4 mg/dL (0.6-1.3); MAGNESIUM 1.8 mg/dL (1.8-2.4); POTASSIUM 3.8 mmol/L (3.5-5.1); TROPONIN-I LEVEL 0.1 ng/mL (<0.06)
[2019-10-07 09:14] LABS: CALCIUM 9.7 mg/dL (8.5-10.1); CREATININE 1.5 mg/dL (0.6-1.3); PHOSPHORUS* 5.2 mg/dL (2.5-4.9)
[2019-10-08] VITALS: BP 103/56
[2019-10-08 01:45] LABS: URINE BILIRUBIN NEGATIVE (Negative); URINE BLOOD 3+ (Negative); URINE CLARITY CLOUDY; URINE COLOR RED; URINE GLUCOSE-RANDOM NEGATIVE (Negative); URINE KETONES NEGATIVE (Negative); URINE LEUKOCYTES NEGATIVE (Negative); URINE NITRITE NEGATIVE (Negative); URINE PROTEIN TRACE (Negative); URINE SPECIFIC GRAVITY 1.015 (1.005-1.030)
[2019-10-08 01:50] LABS: CASTS None Seen /LPF (None Seen); SQUAMOUS NONE SEEN /LPF (0-3)
[2019-10-08 01:51] LABS: BACTERIA 1-9 Few /HPF (None Seen); CRYSTALS None Seen /LPF (None Seen); URINE RBC >20 Many /HPF (0-2); URINE WBC None Seen /HPF (0-5)
[2019-10-08 04:00] VITALS: BP 105/59
[2019-10-08 04:01] LABS: CREATININE 1.4 mg/dL (0.6-1.3); MAGNESIUM 1.7 mg/dL (1.8-2.4); POTASSIUM 4.2 mmol/L (3.5-5.1)
[2019-10-08 07:40] VITALS: BP 152/62
[2019-10-08] MEDS ORDERED: XARELTO20 MG PO (09:14)
[2019-10-08] MEDS ORDERED: SPIRONOLACTONE25 MG PO (09:14)
[2019-10-08] MEDS ORDERED: LASIX 40 MG TAB40 M1 PO (09:14)
[2019-10-08] MEDS ORDERED: DIGOX125 MCG PO (09:17)
[2019-10-08 11:50] VITALS: BP 104/56
[2019-10-09 14:07] LABS: GLOBULIN TOTAL 3.1 g/dL (2.2-3.9); M-SPIKE Not Observed g/dL (Not Observed)
== END 2019-10-08 13:38 | disposition home health service (06) | DRG 291 ==
LOC: M.ERS 08:13 → M.TBA-ER 09:43 → M.2W 09:43
PROVIDERS: Emergency Medicine Emergency Medical Services; Family Medicine; ADMIT Internal Medicine
DX: I13.0 Hypertensive heart and chronic kidney disease with heart failure and stage 1 through stage 4 chronic kidney disease, or unspecified chronic kidney disease (principal); I50.43 Acute on chronic combined systolic (congestive) and diastolic (congestive) heart failure; J96.01 Acute respiratory failure with hypoxia; D68.69 Other thrombophilia; N18.3 Chronic kidney disease, stage 3 (moderate); E66.9 Obesity, unspecified; I48.91 Unspecified atrial fibrillation; K75.89 Other specified inflammatory liver diseases; E83.52 Hypercalcemia; I25.5 Ischemic cardiomyopathy; I48.0 Paroxysmal atrial fibrillation; I49.5 Sick sinus syndrome; E78.5 Hyperlipidemia, unspecified; J44.9 Chronic obstructive pulmonary disease, unspecified; I73.9 Peripheral vascular disease, unspecified; I25.10 Atherosclerotic heart disease of native coronary artery without angina pectoris; I65.23 Occlusion and stenosis of bilateral carotid arteries; Z68.28 Body mass index [BMI] 28.0-28.9, adult; I25.2 Old myocardial infarction; Z95.5 Presence of coronary angioplasty implant and graft; Z88.0 Allergy status to penicillin; Z88.7 Allergy status to serum and vaccine; Z91.030 Bee allergy status; Z79.82 Long term (current) use of aspirin; Z79.899 Other long term (current) drug therapy; Z87.891 Personal history of nicotine dependence; Z86.73 Personal history of transient ischemic attack (TIA), and cerebral infarction without residual deficits; Z95.810 Presence of automatic (implantable) cardiac defibrillator; Z79.01 Long term (current) use of anticoagulants

== ENCOUNTER 2019-10-09 09:37 | Emergency (ER) | payer MEDICARE ==
[~2019-10-09] VITALS: Ht 172.7 cm; Wt 84.8 kg
[~2019-10-09 09:37] MED LIST changes: +DIGOX125 MCG PO; +LASIX 40 MG TAB40 M1 PO; +SPIRONOLACTONE25 MG PO; +XARELTO20 MG PO
[2019-10-09 10:55] VITALS: BP 143/60
== END 2019-10-09 10:55 | disposition home or self-care (01) ==
LOC: M.ERS 09:37
DX: R04.0 Epistaxis (principal); I11.0 Hypertensive heart disease with heart failure; I25.10 Atherosclerotic heart disease of native coronary artery without angina pectoris; I50.40 Unspecified combined systolic (congestive) and diastolic (congestive) heart failure; Z95.5 Presence of coronary angioplasty implant and graft; Z90.49 Acquired absence of other specified parts of digestive tract; Z87.891 Personal history of nicotine dependence; Z91.030 Bee allergy status; Z88.0 Allergy status to penicillin; Z88.2 Allergy status to sulfonamides; Z88.7 Allergy status to serum and vaccine

== ENCOUNTER 2019-10-12 10:36 | Emergency (ER) | payer MEDICARE ==
[~2019-10-12] VITALS: Ht 172.7 cm; Wt 84.8 kg
[2019-10-12 11:16] LABS: ABSOLUTE BASOPHILS 0.1 thou/uL (0.0-0.2); ABSOLUTE EOSINOPHILS 0.2 thou/uL (0.0-0.7); ABSOLUTE MONOCYTES 0.8 thou/uL (0.0-1.2); ABSOLUTE NEUTROPHILS 4.6 thou/uL (1.6-8.1); BASOPHILS 0.7 %; EOSINOPHILS 2.7 %; HEMOGLOBIN 12.5 gm/dL (14.0-18.0); LYMPHOCYTES 25.9 %; MCH 30.7 pg (26.0-34.0); MCHC 33.8 g/dL (28.0-37.0); MCV 90.7 fL (80.0-100.0); MONOCYTES 10.5 %; MPV 7.3 fl. (7.2-11.1); NUCLEATED RBCS 0 /100WBC; PLATELET COUNT* 287 thou/uL (150-400); POLYS 60.2 %; RBC 4.08 mil/uL (4.50-6.00); WBC 7.6 thou/uL (4.0-11.0)
[2019-10-12 11:23] LABS: CALCIUM 9.2 mg/dL (8.5-10.1); CREATININE 1.3 mg/dL (0.6-1.3); POTASSIUM 4.6 mmol/L (3.5-5.1)
[2019-10-12 11:25] LABS: APTT 36.6 Seconds (25.0-31.3); INR 1.4; PROTIME 14.5 Seconds (9.20-11.50)
[2019-10-12 11:28] LABS: ALBUMIN 3.4 g/dL (3.4-5.0); TOTAL BILIRUBIN 0.6 mg/dL (<0.1-1.0); TOTAL PROTEIN 7.7 g/dL (6.4-8.2)
[2019-10-12 12:40] LABS: URINE BLOOD 3+ (Negative); URINE CLARITY CLOUDY; URINE COLOR RED; URINE GLUCOSE-RANDOM NEGATIVE (Negative); URINE KETONES NEGATIVE (Negative); URINE LEUKOCYTES-REFLEX NEGATIVE (Negative); URINE NITRITE-REFLEX NEGATIVE (Negative); URINE PROTEIN 2+ (Negative); URINE UROBILINOGEN 0.2 E.U./dl (0.2-1.0)
[2019-10-12 12:41] LABS: URINE BILIRUBIN 1+ (Negative)
[2019-10-12 12:42] LABS: ICTOTEST (BILI CONFIRMATORY) Negative (Negative)
[2019-10-12 12:44] LABS: SQUAMOUS NONE SEEN /LPF (0-3)
[2019-10-12 12:46] LABS: URINE RBC >20 Many /HPF (0-2); URINE WBC-REFLEX 0-5 Rare /HPF (0-5)
[2019-10-12 12:47] LABS: BACTERIA-REFLEX 1-9 Few /HPF (None Seen); CASTS None Seen /LPF (None Seen); CRYSTALS None Seen /LPF (None Seen); MUCUS None Seen strn/LPF (None Seen)
[2019-10-12 13:07] VITALS: BP 117/64
--- NOTE | 2019-10-12 14:57 | EKG ---
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: [facility] : 1945 Requested By: Abbei Davis Order Number: [id number] MD: Drake Parks Measurements Intervals [place] Rate: 114 P: OR: QRS: -82 QRSD: 180 T: 99 QT: 412 QTc: 568 Interpretive Statements Ventricularly paced rhythm Possible pacemaker mediated tachycardia No further analysis attempted due to paced rhythm Compared to ECG 10/05/2019 08:33:35 Sinus rhythm no longer present Right-axis deviation no longer present T-wave abnormality no longer present Electronically Signed On 10-12-2019 14:55:41 CDT by Drake Parks [email or web address] <ELECTRONICALLY SIGNED> By: Drake Parks MD, FACC 10/12/19 1455 1118 1118 Drake Parks MD, FAC /EPI
== END 2019-10-12 13:07 | disposition home or self-care (01) ==
LOC: M.ERS 10:36
PROVIDERS: Physician Assistant
DX: S91.011A Laceration without foreign body, right ankle, initial encounter (principal); I83.013 Varicose veins of right lower extremity with ulcer of ankle; R31.9 Hematuria, unspecified; R04.0 Epistaxis; I11.0 Hypertensive heart disease with heart failure; I50.42 Chronic combined systolic (congestive) and diastolic (congestive) heart failure; Z95.5 Presence of coronary angioplasty implant and graft; X58.XXXA Exposure to other specified factors, initial encounter; Y93.89 Activity, other specified; Y92.89 Other specified places as the place of occurrence of the external cause; Y99.8 Other external cause status

== ENCOUNTER 2019-10-30 18:58 | Emergency (ER) | payer MEDICARE ==
[~2019-10-30] VITALS: Ht 172.7 cm; Wt 80.3 kg
[2019-10-30 20:43] VITALS: BP 143/89
== END 2019-10-30 20:44 | disposition home or self-care (01) ==
LOC: M.ERS 18:58
DX: R04.0 Epistaxis (principal); I25.10 Atherosclerotic heart disease of native coronary artery without angina pectoris; J44.9 Chronic obstructive pulmonary disease, unspecified; I11.0 Hypertensive heart disease with heart failure; I50.42 Chronic combined systolic (congestive) and diastolic (congestive) heart failure; Z95.5 Presence of coronary angioplasty implant and graft; Z88.0 Allergy status to penicillin; Z88.2 Allergy status to sulfonamides; Z88.7 Allergy status to serum and vaccine; Z87.891 Personal history of nicotine dependence

== ENCOUNTER → 2019-11-11 | Outpatient (CLI) | payer MEDICARE ==
[2019-11-11 09:10] LABS: CALCIUM 8.1 mg/dL (8.5-10.1); CREATININE 1.2 mg/dL (0.6-1.3); POTASSIUM 4.9 mmol/L (3.5-5.1)
== END ==
LOC: M.LAB 10-13 16:49
PROVIDERS: Registered Nurse
DX: I65.23 Occlusion and stenosis of bilateral carotid arteries (principal)

== ENCOUNTER 2019-11-30 09:02 | Inpatient (IN) | payer MEDICARE ==
[~2019-11-30] VITALS: Ht 172.7 cm; Wt 89.6 kg
[2019-11-30 09:05] VITALS: BP 112/61
[2019-11-30 09:45] LABS: ABSOLUTE EOSINOPHILS 0.1 thou/uL (0.0-0.7); ABSOLUTE LYMPHOCYTES 1.1 thou/uL (0.8-5.3); ABSOLUTE MONOCYTES 0.7 thou/uL (0.0-1.2); ABSOLUTE NEUTROPHILS 3.7 thou/uL (1.6-8.1); BASOPHILS 0.7 %; EOSINOPHILS 2.1 %; HEMATOCRIT 31.3 % (42.0-52.0); HEMOGLOBIN 10.4 gm/dL (14.0-18.0); LYMPHOCYTES 19.7 %; MCH 29.7 pg (26.0-34.0); MCHC 33.2 g/dL (28.0-37.0); MCV 89.4 fL (80.0-100.0); MONOCYTES 12.7 %; MPV 7.4 fl. (7.2-11.1); NUCLEATED RBCS 0 /100WBC; PLATELET COUNT* 212 thou/uL (150-400); POLYS 64.8 %; RDW-CV 14.7 % (10.5-14.5); WBC 5.7 thou/uL (4.0-11.0)
[2019-11-30 09:51] LABS: CREATININE 1.4 mg/dL (0.6-1.3); POTASSIUM 3.4 mmol/L (3.5-5.1)
[2019-11-30 10:02] LABS: ALBUMIN 2.8 g/dL (3.4-5.0); MAGNESIUM 1.8 mg/dL (1.8-2.4); TOTAL BILIRUBIN 0.7 mg/dL (<0.1-1.0); TOTAL PROTEIN 6.4 g/dL (6.4-8.2)
--- NOTE | 2019-11-30 12:51 | NUR ---
DR. RAYO AT BEDSIDE WITH PATIENT.
[2019-11-30 13:12] VITALS: BP 116/59
[2019-11-30 13:20] VITALS: BP 107/58
--- NOTE | 2019-11-30 16:16 | NUR ---
PT ADMITTED THIS AFTERNOON. AFIB ON MONITOR. UP AD GINNY WITH STEADY GAIT. DENIES PAIN.
[2019-11-30 16:45] VITALS: BP 97/55
[2019-11-30 19:54] VITALS: BP 93/60
[2019-12-01] VITALS: BP 117/57
[2019-12-01 04:00] VITALS: BP 131/97
--- NOTE | 2019-12-01 05:55 | NUR ---
RECEIVED REPORT AND ASSUMED CARE OF PATIENT AT 1900. VSS. NO ACUTE CHANGES THROUGHOUT SHIFT. ALL ROUNDINGS COMPLETED, ALL NEEDS MET, FULL ASSESSMENT COMPLETED CHARTED. CALL LIGHT AND PERSONAL ITEMS IN REACH.
[2019-12-01 07:23] LABS: HEMATOCRIT 31.9 % (42.0-52.0); HEMOGLOBIN 10.7 gm/dL (14.0-18.0); MCH 29.7 pg (26.0-34.0); MCHC 33.5 g/dL (28.0-37.0); MCV 88.8 fL (80.0-100.0); MPV 7.6 fl. (7.2-11.1); RBC 3.6 mil/uL (4.50-6.00); WBC 6.1 thou/uL (4.0-11.0)
[2019-12-01 07:34] VITALS: BP 111/60
[2019-12-01 07:34] LABS: ALBUMIN 2.9 g/dL (3.4-5.0); CALCIUM 8.8 mg/dL (8.5-10.1); CREATININE 1.5 mg/dL (0.6-1.3); MAGNESIUM 1.8 mg/dL (1.8-2.4); PHOSPHORUS* 4.2 mg/dL (2.5-4.9); POTASSIUM 3.8 mmol/L (3.5-5.1)
[2019-12-01 12:04] VITALS: BP 94/69
--- NOTE | 2019-12-01 14:06 | EKG ---
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1945 Requested By: Zach Young Order Number: [id number] MD: Cristian Carmona Measurements Intervals [place] Rate: 84 P: [place]: QRS: 51 QRSD: 122 T: 269 QT: 398 QTc: 471 Interpretive Statements Afib/flut and V-paced complexes nonspecific st changes Compared to ECG 10/12/2019 11:18:44 rate has slowed Electronically Signed On 12-01-2019 14:04:43 CDT by Cristian Carmona [email or web address] <ELECTRONICALLY SIGNED> By: Cristian Carmona MD, [facility] 12/01/19 1404 0905 0905 Cristian Carmona MD, [facility] /EPI
[2019-12-01 15:52] VITALS: BP 100/60
--- NOTE | 2019-12-01 16:33 | NUR ---
PT ON 1500FR. ACCURATE I/O. VOIDING PER URINAL. DENIES PAIN. PROGRESSING TOWARDS GOALS.
[2019-12-01 20:00] VITALS: BP 123/63
[2019-12-02 00:26] VITALS: BP 110/54
[2019-12-02 04:32] VITALS: BP 96/51
[2019-12-02 05:09] LABS: ALBUMIN 2.7 g/dL (3.4-5.0); CALCIUM 8.8 mg/dL (8.5-10.1); CREATININE 1.4 mg/dL (0.6-1.3); MAGNESIUM 1.5 mg/dL (1.8-2.4); PHOSPHORUS* 4.2 mg/dL (2.5-4.9); POTASSIUM 3.8 mmol/L (3.5-5.1)
--- NOTE | 2019-12-02 06:42 | NUR ---
ASSUMED PT CARE AT 1915. NURSING ASSESSMENT COMPLETED AT START OF SHIFT. PT TRACING AFIB ON HOSPICE VOLUNTEER. HOURLY ROUNDING COMPLETED THIS SHIFT. PT VOICED NO CONCERNS. CALL LIGHT WITHIN REACH. PT AMBULATED AROUND UNIT THIS SHIFT SEVERAL TIMES WITHOUT DIFFICULTY.
[2019-12-02 07:39] VITALS: BP 121/65
[2019-12-02] MEDS ORDERED: NORVASC 2.5 MG2.5 M1 PO (11:20)
[2019-12-02 12:01] VITALS: BP 105/64
[2019-12-02] MEDS ORDERED: LASIX 40 MG TAB40 M1 PO (12:04)
[2019-12-02] MEDS ORDERED: COZAAR 50 MG TA50 M1 PO (12:05)
--- NOTE | 2019-12-02 14:48 | NUR ---
PT DISCHARGED HOME. COPY OF DISCHARGE PAPERWORK WITH AXPLAINATION TO PT. PT VERBALZED UNDERSTANDING. IV ACCESS REMOVED. PT ESCORTED BY STAFF TO DAUGHTER WHO WAS WAITING FOR HIM.
--- NOTE | 2019-12-02 15:21 | CON ---
[address] [address] CONSULTATION Name: KELLYSTEPHENIE Ana Room: [address] IN M.R.#: [id number] Admission: 11/30/19 Attend Phys: Selene Olivo Discharge: 12/02/19 Date of : 49 Report #: [id number] THIS REPORT FOR: //name// cc: Anand Quinn Russell J. DO ~ THIS REPORT FOR: //name// CC: Selene Fox DO DATE OF SERVICE: 11/30/2019 CARDIOLOGY CONSULTATION HISTORY OF PRESENT ILLNESS: The patient is a 74-year-old single white male who came to the Emergency Room complaining of chest pain. The patient has had multiple stents in the past, both at [facility] and [facility]. Actually placed a new stent in his heart in 11/2018. He was discharged on Plavix. He was admitted here to [facility] in September with atypical chest pain after calling paramedics. Dr. Koch performed repeat cardiac catheterization showed chronic occlusion of the stents in the LAD and diagonal. There is no significant restenosis stents in the circumflex and right coronary artery. Ejection fraction 25%. Dr. Parks then placed a defibrillator because of his ischemic cardiomyopathy. He has been treated medically since that time. He was readmitted in September with congestive heart failure. He was found to be in atrial fibrillation. He was started on Xarelto. He was doing well until recently has had increasing shortness of breath and swelling of his feet and abdomen. He has had a sharp pain in his chest, lasted only few seconds. He finally drove himself to the Emergency Room today and admitted for further evaluation and treatment. Denied any palpitations, syncope, fever or cough. He has had no discharge of defibrillator. PAST MEDICAL HISTORY: Significant for back surgery, knee surgery, carotid endarterectomy, hypertension, hyperlipidemia, atrial fibrillation. MEDICATIONS: Consist of Singulair inhaler, carvedilol, Lipitor, Advair, Xarelto, spironolactone, Lasix, digoxin inhaler. ALLERGIES: HE HAS AN ALLERGY TO PENICILLIN AND SULFA DRUGS. FAMILY HISTORY: He had a brother with a stroke. 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 He quit smoking last year. [place] [address] CONSULTATION Name: STEPHENIE MENDOZA Room: [address]#: [id number] Admission: 11/30/19 Attend Phys: Selene Olivo Discharge: 12/02/19 Date of : 49 Report #: [id number] REVIEW OF SYSTEMS: No history of stroke, peptic ulcer disease, liver disease, kidney disease, bleeding, cancer, psychiatric illness, chronic skin condition. PHYSICAL EXAMINATION: GENERAL: Revealed an elderly male, lying in bed, appeared in no distress. VITAL SIGNS: Blood pressure 120/60, pulse is 80. He is afebrile. HEENT: He was anicteric. Conjunctivae pink. Mucous membranes moist. NECK: Veins are nondistended. CHEST: Revealed expiratory wheezes. CARDIOVASCULAR: Irregular rhythm. No significant murmur. ABDOMEN: Soft. EXTREMITIES: Had pitting edema up to mid tibial area. SKIN: Cool and dry. NEUROLOGIC: Nonfocal. His ECG shows what appears to represent atrial fibrillation with occasional ventricular paced beats and PVCs. His echocardiogram in September showed an ejection fraction of 40% with inferior akinesia. LABORATORY WORK: Today, he had a portable chest x-ray showed mild pulmonary edema, cardiomegaly, evidence of defibrillator in place. 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 There appeared to be a thrombus in the right internal carotid artery. His lab work sodium 138, BUN 21, creatinine 1.4. His liver function studies were normal. BNP 2035. His white blood cell count 5.7, hematocrit 31.3. IMPRESSION AND RECOMMENDATIONS: 1. Acute on chronic systolic heart failure. Recommend Lasix. The patient is on a beta catracho. I would consider adding an ARB. Recommend Aldactone. 2. Coronary artery disease. Atypical chest pain. Cardiac catheterization September showed no restenosis. Since the patient is on Xarelto, I would not recommend aspirin and Plavix. 3. Previous tobacco abuse. 4. Chronic obstructive pulmonary disease. 5. Previous carotid endarterectomy. 6. Anemia. No history of bleeding. 7. Atrial fibrillation. I will consider to reprogram his dual chamber defibrillator to a single chamber lead only. No recent discharges. <ELECTRONICALLY SIGNED> By: Cristian Carmona MD, [facility] 12/02/19 1521 1258 1320Cristian Carmona MD, [facility] /nt
== END 2019-12-02 15:00 | disposition home or self-care (01) | DRG 291 ==
LOC: M.ERS 09:02 → M.2W 10:09 → M.TBA-ER 10:09 → M.2W 13:19
PROVIDERS: Emergency Medicine Emergency Medical Services; ADMIT Family Medicine
DX: I13.0 Hypertensive heart and chronic kidney disease with heart failure and stage 1 through stage 4 chronic kidney disease, or unspecified chronic kidney disease (principal); E43 Unspecified severe protein-calorie malnutrition; I50.43 Acute on chronic combined systolic (congestive) and diastolic (congestive) heart failure; N17.9 Acute kidney failure, unspecified; D68.59 Other primary thrombophilia; N18.3 Chronic kidney disease, stage 3 (moderate); E78.5 Hyperlipidemia, unspecified; M54.9 Dorsalgia, unspecified; I25.10 Atherosclerotic heart disease of native coronary artery without angina pectoris; E87.6 Hypokalemia; I48.91 Unspecified atrial fibrillation; J44.9 Chronic obstructive pulmonary disease, unspecified; G89.29 Other chronic pain; D64.9 Anemia, unspecified; R04.0 Epistaxis; Z87.891 Personal history of nicotine dependence; I25.2 Old myocardial infarction; Z88.0 Allergy status to penicillin; Z88.2 Allergy status to sulfonamides; Z88.7 Allergy status to serum and vaccine; Z91.030 Bee allergy status; Z68.30 Body mass index [BMI] 30.0-30.9, adult; Z79.899 Other long term (current) drug therapy; Z79.01 Long term (current) use of anticoagulants; Z72.89 Other problems related to lifestyle; Z95.810 Presence of automatic (implantable) cardiac defibrillator; Z95.5 Presence of coronary angioplasty implant and graft

== ENCOUNTER 2020-02-25 15:30 | Inpatient (IN) | payer MEDICARE ==
[~2020-02-25] VITALS: Ht 172.7 cm; Wt 85.3 kg
[~2020-02-25 15:30] MED LIST changes: +COZAAR 50 MG TA50 M1 PO; +NORVASC 2.5 MG2.5 M1 PO
[2020-02-25 15:34] VITALS: BP 130/70
[2020-02-25 16:01] LABS: ABSOLUTE EOSINOPHILS 0.1 thou/uL (0.0-0.7); ABSOLUTE LYMPHOCYTES 1.9 thou/uL (0.8-5.3); ABSOLUTE MONOCYTES 0.9 thou/uL (0.0-1.2); ABSOLUTE NEUTROPHILS 4.6 thou/uL (1.6-8.1); BASOPHILS 0.4 %; EOSINOPHILS 0.9 %; LYMPHOCYTES 25.2 %; MCH 27.8 pg (26.0-34.0); MCHC 32.5 g/dL (28.0-37.0); MCV 85.5 fL (80.0-100.0); MONOCYTES 11.8 %; MPV 7.9 fl. (7.2-11.1); NUCLEATED RBCS 0 /100WBC; PLATELET COUNT* 279 thou/uL (150-400); POLYS 61.7 %; RBC 4.32 mil/uL (4.50-6.00); RDW-CV 16.8 % (10.5-14.5); WBC 7.5 thou/uL (4.0-11.0)
[2020-02-25 16:09] LABS: CREATININE 1.3 mg/dL (0.6-1.3); INR 1.3; POTASSIUM 4.9 mmol/L (3.5-5.1); PROTIME 13.6 Seconds (9.20-11.50)
[2020-02-25 16:20] LABS: ALBUMIN 3.4 g/dL (3.4-5.0); TOTAL BILIRUBIN 1.5 mg/dL (<0.1-1.0); TOTAL PROTEIN 7.1 g/dL (6.4-8.2)
[2020-02-25 19:21] VITALS: BP 129/82
[2020-02-25 19:30] VITALS: BP 119/75
[2020-02-26] VITALS (7 sets, daily range): BP systolic 111–140; BP diastolic 61–91
[2020-02-26 04:30] LABS: CALCIUM 8.6 mg/dL (8.5-10.1); CREATININE 1.3 mg/dL (0.6-1.3); MAGNESIUM 1.9 mg/dL (1.8-2.4); POTASSIUM 4.5 mmol/L (3.5-5.1)
--- NOTE | 2020-02-26 12:15 | EKG ---
[place] [address] ELECTROCARDIOGRAM REPORT Name: STEPHENIE MENDOZA Room: [address] ADM IN .R.#: [id number] Admission: 02/25/20 Attend Phys: Skip Fernández, Discharge: Date of : 49 Date of Service: 02/25/20 1536 Report #: [id number] THIS REPORT FOR: //name// [facility] ED Test Date: 2020-02-25 Test Time: 15:36:55 Pat Name: STEPHENIE MENDOZA Department: Room: 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 : 1945 Requested By: Toan Farrar Order Number: [id number] MD: Drake Parks Measurements Intervals [place] Rate: 148 P: 257 NV: 104 QRS: 60 QRSD: 95 T: 57 QT: 297 QTc: 467 Interpretive Statements Atrial fibrillation with rapid ventricular response rate Low voltage, extremity leads Probable anteroseptal infarct, old Nonspecific T abnormalities, lateral leads Compared to ECG 11/30/2019 09:05:09 Low QRS voltage now present Myocardial infarct finding now present T-wave abnormality now present Ventricular-paced complex(es) or rhythm no longer present ST (T wave) deviation no longer present Electronically Signed On 02-26-2020 12:15:02 CDT by Drake Parks [email or web address] <ELECTRONICALLY SIGNED> By: Drake Parks MD, [facility] 02/26/20 1215 1536 1536 Drake Parks MD, [facility] /EPI
--- NOTE | 2020-02-26 14:01 | CON ---
[address] [address] CONSULTATION Name: STEPHENIE MENDOZA Room: [address] IN M.R.#: [id number] Admission: 02/25/20 Attend Phys: Skip Fernández MD Discharge: Date of : 49 Report #: [id number] THIS REPORT FOR: //name// cc: Anand Quinn Russell J. DO ~ THIS REPORT FOR: //name// CC: Cristian Carmona MD [facility] Skip Quinn DO DATE OF SERVICE: 02/26/2020 CARDIOLOGY CONSULTATION INDICATION: Heart failure exacerbation and atrial fibrillation with rapid ventricular response rate. HISTORY OF PRESENT ILLNESS: The patient is a very pleasant 74-year-old gentleman with history of ischemic cardiomyopathy with an ejection fraction of approximately 30%. He has an occluded right coronary artery that fills distally by collaterals. He has an occluded diagonal branch. Diffusely diseased circumflex system. He is not having angina. He has a history of paroxysmal atrial fibrillation. On admission, he is noted to be in atrial fibrillation with a rapid ventricular response rate. Cardiac risk factors include hypertension and dyslipidemia. 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 He has been experiencing increasing dyspnea on exertion and orthopnea over the past several days. He has some brief episodes of chest discomfort that do not sound like che angina. His troponins are essentially unremarkable. There was minimal elevation attributed to congestive heart failure. PAST MEDICAL HISTORY: 1. Coronary artery disease. 2. Ischemic cardiomyopathy. 3. Paroxysmal, now persistent atrial fibrillation. 4. Status post ICD placement for primary prevention. 5. Carotid vascular disease as outlined above. 6. Hypertension. 7. Dyslipidemia. 8. History of carotid endarterectomy. [address] [address] CONSULTATION Name: KELLYSTEPHENIE Ana Room: [address] IN [facility]#: [id number] Admission: 02/25/20 Attend Phys: Skip Fernández MD Discharge: Date of : 49 Report #: [id number] HOME MEDICATIONS: Atorvastatin 40 mg daily, Caltrate 600 one tablet p.o. b.i.d., carvedilol 6.25 mg b.i.d., digoxin 0.125 mg daily, vitamin D2 of 1250 mcg capsule 4 tablets weekly, Advair inhaler 1 puff b.i.d., Lasix 40 mg p.o. daily, Combivent inhaler q.i.d., losartan 25 mg daily, Singulair 10 mg daily, Xarelto 20 mg daily, spironolactone 50 mg daily. ALLERGIES: PENICILLIN AND SULFAS. FAMILY HISTORY: The patient's brother had a stroke. SOCIAL HISTORY: The patient quit smoking a year and a half ago. He does not drink alcohol. REVIEW OF SYSTEMS: As per HPI, otherwise unremarkable. PHYSICAL EXAMINATION: VITAL SIGNS: Blood pressure 121/77, pulse is in the 90s and irregular. GENERAL: This is a pleasant gentleman in no distress. Mood and affect appropriate. HEENT: Extraocular muscles are intact. Mucous membranes are moist. NECK: Shows no jugular venous distention. CHEST: Reveals diminished breath sounds throughout with expiratory wheezes and basilar crackles. CARDIOVASCULAR: Reveals an irregularly irregular rhythm without gallop or murmur. ABDOMEN: Reveals normal bowel sounds. The abdomen is soft and nontender. EXTREMITIES: Shows no edema. Peripheral pulses palpable. SKIN: Dry. IMAGING: A 12-lead EKG shows atrial fibrillation with a rapid ventricular response rate. LABORATORY DATA: Labs are reviewed. Sodium 136, potassium 4.5, chloride 100, bicarbonate 29, BUN 24, creatinine 1.3, serum glucose 100. Troponin on arrival 0.09, subsequently 0.08, and now less than 0.06. NT-proBNP 1809. White blood cell count 7.5, hemoglobin 12.0, and platelet count 279,000. Chest x-ray shows mild cardiomegaly, possible small right pleural effusion without significant vascular congestion. IMPRESSION AND RECOMMENDATIONS: 1. Acute on chronic combined heart failure. The patient is on IV Lasix with some improvement in his shortness of breath. I would continue this for present. He is on appropriate medications as outlined above. We will adjust as blood pressure tolerates. Continuing carvedilol, losartan and spironolactone. 2. Atrial fibrillation, now persistent. The [place] [id number] CONSULTATION Name: STEPHENIE MENDOZA Room: [address] IN .R.#: [id number] Admission: 02/25/20 Attend Phys: Skip Fernánedz MD Discharge: Date of : 49 Report #: [id number] response rate on arrival. Rates are improved presently. I am starting an amiodarone drip after bolus in an attempt to restore sinus rhythm. Continue chronic anticoagulation. 3. Coronary artery disease, presently stable. He is not having symptoms to suggest acute coronary syndrome. Troponin is minimally elevated, likely due to congestive heart failure. 4. Hypertension. Blood pressure appears adequately controlled at this time. We will adjust heart failure medications as tolerated. 5. Dyslipidemia. Continue atorvastatin at current dose. Repeat fasting lipid profile at this time. 6. Carotid vascular disease, clinically stable. Continue antiplatelet therapy. 7. Implantable cardioverter-defibrillator in place for primary prevention. Normal function by remote interrogations. <ELECTRONICALLY SIGNED> By: Drake Parks MD, FACC 02/26/20 1401 0938 [id number] Parks MD, FACC /nt
[2020-02-27] VITALS: BP 118/73
[2020-02-27 04:00] VITALS: BP 106/66
[2020-02-27 05:25] LABS: ANION GAP 7 mmol/L (7-16); BUN 32 mg/dL (7-18); CALCIUM 8.8 mg/dL (8.5-10.1); CHLORIDE 98 mmol/L (98-107); CHOLESTEROL 130 mg/dL (<200); CO2 30 mmol/L (21-32); CREATININE 1.7 mg/dL (0.6-1.3); GLUCOSE 123 mg/dL (70-99); HDL CHOLESTEROL 24 mg/dL (>40); LDL CHOLESTEROL 97 mg/dL (<100); POTASSIUM 4.1 mmol/L (3.5-5.1); SERUM ASSESSMENT CLEAR; SODIUM 135 mmol/L (136-145); TC:HDL 5.4 Ratio (Not establshd); TRIGLYCERIDE 49 mg/dL (<150); VLDL 10 mg/dL (<40)
[2020-02-27 08:05] VITALS: BP 122/68
[2020-02-27 12:19] VITALS: BP 99/77
[2020-02-27 17:13] VITALS: BP 104/70
[2020-02-27 20:00] VITALS: BP 105/61
[2020-02-28 00:10] VITALS: BP 116/70
[2020-02-28 04:00] VITALS: BP 122/72
[2020-02-28 05:11] LABS: CALCIUM 9.2 mg/dL (8.5-10.1); CREATININE 1.9 mg/dL (0.6-1.3)
[2020-02-28 08:00] VITALS: BP 121/79
[2020-02-28 12:15] VITALS: BP 109/62
[2020-02-28 15:55] VITALS: BP 136/63
[2020-02-28 20:00] VITALS: BP 125/54
[2020-02-29] VITALS: BP 135/82
[2020-02-29 04:00] VITALS: BP 118/77
[2020-02-29 05:21] LABS: CALCIUM 8.9 mg/dL (8.5-10.1); CREATININE 1.4 mg/dL (0.6-1.3); POTASSIUM 4.6 mmol/L (3.5-5.1)
[2020-02-29 08:00] VITALS: BP 127/64
[2020-02-29] MEDS ORDERED: PREDNISONE 10 M10 MG PO (08:24)
[2020-02-29] MEDS ORDERED: MUCINEX600 MG PO (08:24)
[2020-02-29] MEDS ORDERED: ATORVASTATIN CA80 MG PO (08:24)
[2020-02-29] MEDS ORDERED: XARELTO20 MG PO (08:24)
[2020-02-29] MEDS ORDERED: LEVAQUIN 500 M500 M3 PO (08:24)
[2020-02-29] MEDS ORDERED: ADULT LOW DOSE81 MG PO (08:24)
[2020-02-29 12:46] VITALS: BP 119/70
== END 2020-02-29 16:00 | disposition home health service (06) | DRG 280 ==
LOC: M.ERS 15:30 → M.TBA-ER 16:53 → M.2W 17:39
PROVIDERS: Family Medicine; Internal Medicine Cardiovascular Disease; ADMIT Internal Medicine; ATTEND Internal Medicine
DX: I13.0 Hypertensive heart and chronic kidney disease with heart failure and stage 1 through stage 4 chronic kidney disease, or unspecified chronic kidney disease (principal); I21.A1 Myocardial infarction type 2; J96.21 Acute and chronic respiratory failure with hypoxia; I50.43 Acute on chronic combined systolic (congestive) and diastolic (congestive) heart failure; J44.1 Chronic obstructive pulmonary disease with (acute) exacerbation; D68.69 Other thrombophilia; E87.2 Acidosis; I48.19 Other persistent atrial fibrillation; J44.0 Chronic obstructive pulmonary disease with (acute) lower respiratory infection; J20.8 Acute bronchitis due to other specified organisms; N18.9 Chronic kidney disease, unspecified; I25.10 Atherosclerotic heart disease of native coronary artery without angina pectoris; I99.8 Other disorder of circulatory system; E78.5 Hyperlipidemia, unspecified; Z20.828 Contact with and (suspected) exposure to other viral communicable diseases; Z79.01 Long term (current) use of anticoagulants; Z79.899 Other long term (current) drug therapy; Z87.891 Personal history of nicotine dependence; Z88.0 Allergy status to penicillin; Z88.2 Allergy status to sulfonamides; Z88.7 Allergy status to serum and vaccine; Z95.810 Presence of automatic (implantable) cardiac defibrillator